=== PATIENT | female | born 1945 | race Caucasian/White ===

== ENCOUNTER 2018-08-30 14:17 | Inpatient (IN) | payer MEDICARE, OTHER ==
[~2018-08-30] VITALS: Ht 160 cm; Wt 102.0 kg
[2018-08-30 14:37] VITALS: BP 92/40
[2018-08-30] MEDS ORDERED: LISINOPRIL20 MG PO (14:48)
[2018-08-30] MEDS ORDERED: CLARITIN10 MG PO (14:49)
[2018-08-30] MEDS ORDERED: GABAPENTIN 100100 MG PO (14:49)
[2018-08-30] MEDS ORDERED: NOVOLIN 70100 UNIT/1 SUBQ (14:51)
[2018-08-30] MEDS ORDERED: IMDUR 60 MG TAB60 M1 PO (14:51)
[2018-08-30] MEDS ORDERED: ONDANSETRON HCL4 M2 PO (14:51)
[2018-08-30] MEDS ORDERED: PENTOXIFYLLINE400 MG PO (14:52)
[2018-08-30] MEDS ORDERED: PROTONIX40 M1 PO (14:52)
[2018-08-30] MEDS ORDERED: LIPITOR40 MG PO (14:52)
[2018-08-30] MEDS ORDERED: CARVEDILOL3.125 MG PO (14:53)
[2018-08-30] MEDS ORDERED: K-DUR 20 MEQ T20 MEQ PO (14:53)
[2018-08-30] MEDS ORDERED: SENNA8.6 MG PO (14:53)
[2018-08-30] MEDS ORDERED: GLUCOPHAGE1000 MG PO (14:54)
[2018-08-30] MEDS ORDERED: ZOLOFT50 MG PO (14:54)
[2018-08-30] MEDS ORDERED: CHILDREN'S ASPI81 M1 PO (14:55)
[2018-08-30] MEDS ORDERED: LASIX 40 MG TAB40 M2 PO (14:55)
[2018-08-30] MEDS ORDERED: BISACODYL SUPP10 MG RECTAL (14:55)
[2018-08-30 15:23] LABS: URINE BILIRUBIN NEGATIVE (Negative); URINE BLOOD 3+ (Negative); URINE CLARITY CLEAR; URINE COLOR YELLOW; URINE GLUCOSE-RANDOM NEGATIVE (Negative); URINE KETONES TRACE (Negative); URINE LEUKOCYTES-REFLEX 1+ (Negative); URINE NITRITE-REFLEX NEGATIVE (Negative); URINE PROTEIN 2+ (Negative); URINE SPECIFIC GRAVITY >= 1.030 (1.005-1.030); URINE UROBILINOGEN 0.2 E.U./dl (0.2-1.0)
[2018-08-30 15:34] LABS: HYALINE CASTS >10 Many /LPF (None Seen); MUCUS None Seen strn/LPF (None Seen); SQUAMOUS 4-10 Moderate /LPF (0-3)
[2018-08-30 15:35] LABS: BACTERIA-REFLEX 1-9 Few /HPF (None Seen); CRYSTALS None Seen /LPF (None Seen); URINE RBC >20 Many /HPF (0-2); URINE WBC-REFLEX 0-5 Rare /HPF (0-5)
[2018-08-30 15:38] LABS: HEMATOCRIT 28.5 % (37.0-47.0); MCHC 31.5 g/dL (28.0-37.0); MCV 95.5 fL (80.0-100.0); MPV 7.7 fl. (7.2-11.1); NUCLEATED RBCS 0 /100WBC; PLATELET COUNT* 257 thou/uL (150-400); RBC 2.98 mil/uL (4.20-5.00); RDW-CV 15.8 % (10.5-14.5); WBC 10.5 thou/uL (4.0-11.0)
[2018-08-30 15:51] LABS: APTT 25.5 Seconds (25.0-31.3); CALCIUM 9.1 mg/dL (8.5-10.1); CREATININE 3.1 mg/dL (0.6-1.3); INR 1.2; POTASSIUM 3.9 mmol/L (3.5-5.1); PROTIME 12.1 Seconds (9.20-11.50)
[2018-08-30 16:08] LABS: ALBUMIN 3.1 g/dL (3.4-5.0); TOTAL BILIRUBIN 0.3 mg/dL (<0.1-1.0); TOTAL PROTEIN 7.3 g/dL (6.4-8.2); TROPONIN-I LEVEL 0.32 ng/mL (<0.06)
[2018-08-30 16:41] LABS: ABSOLUTE EOSINOPHILS 1.5 thou/uL (0.0-0.7); ABSOLUTE LYMPHOCYTES 1.7 thou/uL (0.8-5.3); ABSOLUTE MONOCYTES 0.5 thou/uL (0.0-1.2); ABSOLUTE NEUTROPHILS 6.8 thou/uL (1.6-8.1); PLATELET ESTIMATE ADEQUATE
[2018-08-30 19:54] VITALS: BP 108/52
[2018-08-30 20:54] VITALS: BP 95/45
[2018-08-30 23:55] VITALS: BP 82/44
[2018-08-31] VITALS (73 sets, daily range): BP systolic 82–169; BP diastolic 33–88
--- NOTE | 2018-08-31 03:42 | NUR ---
ASSUMED CARE OF PT AT 2030 FROM THE ER. PT WAS ALERT AND ORIENTED. VSS. VEE. PT WAS IN A FLUTTER. AT ABOUT MIDNIGHT PT WAS NOTED TO BE HYPOTENSIVE. BLOOD PRESSURE WAS 75/[address] HOOD NOTIFIED. PT WAS GIVEN A 500 ML BOLUS. BLOOD PRESSURE CAME UP TO 87/43. BLOOD PRESSURE REMAINED IN THE 80'S SYSTOLIC. PT REPORTED FEELING OK. AT ABOUT 0300. PT WAS RECHECKED AND BLOOD PRESSURE WAS 67/33. FAMILY CALLED. THEY STATED THEIR WISHES WHERE FOR PT TO BE GIVEN MEDS TO ASSIST BLOOD PRESSURE. DR HOOD NOTIFIED AND PT WAS TAKEN TO ICU AT 0335.
--- NOTE | 2018-08-31 05:24 | NUR ---
PATIENT TO ICU ROOM 6 AT 0330 ACCOMPANIED BY RN AND ON A BED. ON 2L OF O2 PER NC. ALERT AND ORIENTED X4. PATIENT GOES BACK AND FORTH FROM SINUS ARRYTHMIA TO AFIB. VITALS STABLE, MAP >60 AT THIS TIME, WILL MONITOR AND START PRESSOR NEEDED. CENTRAL LINE PLACED AT BEDSIDE. FAMILY AT BEDSIDE. PATIENT COMPLAINS OF HEADACHE, DENIES PAIN OTHERWISE.
[2018-08-31 05:31] LABS: ABSOLUTE EOSINOPHILS 1.3 thou/uL (0.0-0.7); ABSOLUTE LYMPHOCYTES 1.1 thou/uL (0.8-5.3); ABSOLUTE MONOCYTES 0.6 thou/uL (0.0-1.2); ABSOLUTE NEUTROPHILS 6.8 thou/uL (1.6-8.1); BASOPHILS 0.4 %; HEMATOCRIT 26.5 % (37.0-47.0); HEMOGLOBIN 8.5 gm/dL (12.0-15.0); LYMPHOCYTES 11.3 %; MCH 30.5 pg (26.0-34.0); MCHC 31.9 g/dL (28.0-37.0); MCV 95.5 fL (80.0-100.0); MPV 8.3 fl. (7.2-11.1); NUCLEATED RBCS 0 /100WBC; PLATELET COUNT* 235 thou/uL (150-400); POLYS 69.3 %; RBC 2.78 mil/uL (4.20-5.00); RDW-CV 15.3 % (10.5-14.5); WBC 9.9 thou/uL (4.0-11.0)
[2018-08-31 06:11] LABS: ALBUMIN 2.8 g/dL (3.4-5.0); CALCIUM 9.1 mg/dL (8.5-10.1); CREATININE 3.3 mg/dL (0.6-1.3); MAGNESIUM 1.4 mg/dL (1.8-2.4); PHOSPHORUS* 3.5 mg/dL (2.5-4.9); POTASSIUM 4.1 mmol/L (3.5-5.1); TOTAL BILIRUBIN 0.4 mg/dL (<0.1-1.0); TOTAL PROTEIN 6.5 g/dL (6.4-8.2); TROPONIN-I LEVEL 0.26 ng/mL (<0.06)
--- NOTE | 2018-08-31 09:12 | NUR ---
0723 ASSUMED CARE OF PATIENT.PLEASE SEE DOCUMENTED ASSESSMENT. PT C/O FATIGUE. WEANING LEVOPHED GTT
[2018-08-31 09:40] LABS: CHOLESTEROL 76 mg/dL (<200); HDL CHOLESTEROL 22 mg/dL (>40); LDL CHOLESTEROL 31 mg/dL (<100); TC:HDL 3.5 Ratio (Not establshd); TRIGLYCERIDE 116 mg/dL (<150); VLDL 23 mg/dL (<40)
[2018-08-31 09:41] LABS: SERUM ASSESSMENT Clear
--- NOTE | 2018-08-31 10:41 | NUR ---
INITIAL ASSESSMENT: Pt evaluated for d/c planning needs. Reviewed chart and spoke with nurse and pt. Pt is alert and oriented. Pt was living at home with her in [place] and moved within the past week to area to live with her daughter. Pt has walker and has been hospitalized several times in the past few weeks. Pt has been 58 years and spouse has macular degeneration. Pt plans on returning home with her daughter on d/c from hospital. Will remain available to assist as needed.
--- NOTE | 2018-08-31 12:41 | 2DMMODE ---
[place] [address] 2 D/M-MODE ECHOCARDIOGRAM Name: GUERA MARKHAM Room: [address] IN [facility]#: [id number] Admission: 08/30/18 Attend Phys: Whitney Goyal MD Discharge: Date of : 41 Date of Service: 08/31/18 1241 Report #: [id number] THIS REPORT FOR: //name// APPROVED REPORT Study performed: 08/31/2018 10:02:24 EXAM: Comprehensive 2D, Doppler, and color-flow Echocardiogram Patient Location: In-Patient Room #: [facility] Status: routine BSA: 2.01 HR: 68 bpm BP: 98/56 mmHg Rhythm: Atrial Fibrillation Other Information Study Quality: Good Indications Congestive Heart Failure 2D Dimensions IVSd: 11.40 (7-11mm) LVOT Diam: 19.75 (18-24mm) LVDd: 47.91 mm PWd: 11.53 (7-11mm) Ascending Ao: 28.51 (22-36mm) LVDs: 39.68 (25-40mm) Aortic Root: 31.81 mm Volumes Left Atrial Volume (Systole) LA ESV Index: 50.80 mL/m2 Aortic Valve AoV Peak Gerald.: 1.44 m/s AO Peak Gr.: 8.32 mmHg LVOT Max P.72 mmHg AO Mean Gr.: 4.25 mmHg LVOT Mean P.31 mmHg LVOT Max V: 0.83 m/s AO V2 VTI: 26.68 cm LVOT Mean V: 0.52 m/s JOANNA (VTI): 1.89 cm2 LVOT V1 VTI: 16.43 cm Mitral Valve E/A Ratio: 2.02 MV Decel. Time: 172.21 ms MV E Max Gerald.: 1.14 m/[place] [address] 2 D/M-MODE ECHOCARDIOGRAM Name: GUERA MARKHAM Room: [address] IN [facility]#: [id number] Admission: 08/30/18 Attend Phys: Whitney Goyal MD Discharge: Date of : 41 Date of Service: 08/31/18 1241 Report #: [id number] MV PHT: 49.94 ms MVA (PHT): 4.41 cm2 TDI E/Lateral E': 8.14 E/Medial E': 19.00 Medial E' Gerald.: 0.06 m/s Lateral E' Gerald.: 0.14 m/s Pulmonary Valve PV Peak Gerald.: 0.78 m/s PV Peak Gr.: 2.43 mmHg Tricuspid Valve RAP Estimate: 15.00 mmHg TR Peak Gr.: 24.57 mmHg RVSP: 39.00 mmHg PA Pressure: 39.00 mmHg Left Ventricle The left ventricle is normal size. Regional wall motion abnormalities are noted. The basal inferior wall is akinetic. The apex is akinetic. The septum is severely hypokinetic. There is normal left ventricular wall thickness. Left ventricular systolic function is moderately decreased. LVEF is 35-40%. Severe diastolic dysfunction is present (restrictive filling). Right Ventricle Right ventricle is dilated. Right ventricular systolic function is moderately reduced. Atria Left atrium is moderately dilated. Right atrium is moderately dilated. Aortic Valve Aortic valve leaflets are mildly thickened. No aortic regurgitation is present. Mild aortic stenosis. Mitral Valve The mitral valve is normal in structure. Mild mitral regurgitation. No evidence of mitral valve stenosis. Tricuspid Valve The tricuspid valve is normal in structure. Severe tricuspid regurgitation. The RVSP is 50-55 mmHg. Pulmonic Valve The pulmonary valve is normal in structure. [place] [address] 2 D/M-MODE ECHOCARDIOGRAM Name: GUERA MARKHAM Room: [address] IN [facility]#: [id number] Admission: 08/30/18 Attend Phys: Whitney Goyal MD Discharge: Date of : 41 Date of Service: 08/31/18 1241 Report #: [id number] regurgitation. Great Vessels The aortic root is normal in size. IVC is dilated and collapses <50% with inspiration. Pericardium There is no pericardial effusion. <Conclusion> Right ventricle is dilated. Right ventricular systolic function is moderately reduced. Left atrium is moderately dilated. Right atrium is moderately dilated. Aortic valve leaflets are mildly thickened. Mild aortic stenosis. Mild mitral regurgitation. Severe tricuspid regurgitation. The RVSP is 50-55 mmHg. Mild pulmonic regurgitation. IVC is dilated and collapses <50% with inspiration. <ELECTRONICALLY SIGNED> By: Harley Rice MD, FACC 08/31/18 1241 1241 124 Harley Rice MD, FACC /INF
--- NOTE | 2018-08-31 13:16 | NUR ---
1245 OFF OF LEVOPHED DRIP. DIET RESUMED. CONVERTED TO SINUS RHYTHM BUT HAS EPISODES OF A FIB.
--- NOTE | 2018-08-31 15:49 | EKG ---
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: : 1945 Requested By: Nessa Griffith Order Number: [id number] MD: Harley Rice Measurements Intervals [place] Rate: 88 P: UT: QRS: 48 QRSD: 117 T: 238 QT: 403 QTc: 488 Interpretive Statements Atrial fibrillation Nonspecific intraventricular conduction delay Borderline repolarization abnormality No previous ECG available for comparison Electronically Signed On 08-31-2018 15:49:34 CDT by Harley Rice [email or web address] <ELECTRONICALLY SIGNED> By: Harley Rice MD, [facility] 08/31/18 1549 1520 152 Harley Rice MD, FACC /EPI
--- NOTE | 2018-08-31 18:06 | NUR ---
PATIENT PROGRESSING TOWARDS GOALS. NOW MORE ALERT. DIET RESUMED. DOES NOT HAVE LOWER TEETH AND DID NOT WANT THEM BECAUSE THEY HURT HER MOUTH. TAKES ONLY SOFT FOODS. CURRENTLY OFF OF PRESSORS. GOES IN AND OUT OF ATRIAL FIB. OLIGURIC. SEEN BY NEPHROLOGY. FAMILY HAS VISITED. REMAINS DNR STATUS
[2018-09-01] VITALS (41 sets, daily range): BP systolic 80–139; BP diastolic 33–93
[2018-09-01 04:38] LABS: ALBUMIN 2.7 g/dL (3.4-5.0); CALCIUM 8.8 mg/dL (8.5-10.1); CREATININE 3.1 mg/dL (0.6-1.3); TOTAL BILIRUBIN 0.4 mg/dL (<0.1-1.0); TOTAL PROTEIN 6.4 g/dL (6.4-8.2)
--- NOTE | 2018-09-01 05:12 | NUR ---
VITALS STABLE, AFEBRILE. LEVOPHED TITRATED OFF, BP SOFT BUT MAINTAINING MAP>60. PATIENT ALERT AND ORIENTED X3, MORE CONVERSATIONAL THAN SHE WAS LAST NIGHT. ABLE TO SLEEP THROUGH MOST OF THE NIGHT. OTHERWISE UNEVENTFUL NIGHT. Q2 TURNS FOR SKIN INTEGIRTY. CALL LIGHT WITHIN REACH.
--- NOTE | 2018-09-01 18:26 | NUR ---
09/01 Days: Levo restarted this evening due to MAP in the 40's. Patient asymptomatic of hypotension. Ate fair at meals, >50%. Total fluid intake to remain below 1500, preferably 1200 if possible per nephro. HIMS, NEPHRO, and CARDS has lengthy discussions with family and disease processes. MIVF discontinued. UOP 250 for shift. Tylenol x1 for neck discomfort
[2018-09-02] VITALS (95 sets, daily range): BP systolic 72–153; BP diastolic 13–70
[2018-09-02 05:07] LABS: ABSOLUTE BASOPHILS 0.1 thou/uL (0.0-0.2); ABSOLUTE EOSINOPHILS 0.9 thou/uL (0.0-0.7); ABSOLUTE LYMPHOCYTES 1.2 thou/uL (0.8-5.3); ABSOLUTE MONOCYTES 0.7 thou/uL (0.0-1.2); ABSOLUTE NEUTROPHILS 4.7 thou/uL (1.6-8.1); BASOPHILS 0.7 %; EOSINOPHILS 12.3 %; HEMATOCRIT 27.7 % (37.0-47.0); HEMOGLOBIN 8.7 gm/dL (12.0-15.0); MCH 29.5 pg (26.0-34.0); MCHC 31.2 g/dL (28.0-37.0); MCV 94.3 fL (80.0-100.0); MONOCYTES 8.8 %; MPV 8.2 fl. (7.2-11.1); NUCLEATED RBCS 0 /100WBC; PLATELET COUNT* 242 thou/uL (150-400); POLYS 62.2 %; RBC 2.94 mil/uL (4.20-5.00); RDW-CV 15.8 % (10.5-14.5); WBC 7.5 thou/uL (4.0-11.0)
[2018-09-02 05:20] LABS: ALBUMIN 2.6 g/dL (3.4-5.0); CALCIUM 8.8 mg/dL (8.5-10.1); CREATININE 2.8 mg/dL (0.6-1.3); PHOSPHORUS* 3.6 mg/dL (2.5-4.9); POTASSIUM 3.9 mmol/L (3.5-5.1)
--- NOTE | 2018-09-02 06:55 | NUR ---
ASSESSMENT CHARTED. ATTEMPTED TO WEAN OFF LEVOPHED THREE TIMES DURING SHIFT. UNSUCCESSFULL ATTEMPTS. PATIENT REMAINS ON 1 MCG/MIN OF LEVO. SPOKE WITH FAMILY TWICE DURING SHIFT AND GAVE UPDATES. PATIENT C/O PAIN IN COCCYX OVER RED/PURPLE AREA. APPLIED BARRIER CREAM AND GAVE PATIENT BED BATH. PATIENT SLEPT DURING MOST OF THE SHIFT. DENIED ANY OTHER PAIN OR DISCOMFORT. STILL ON 1500ML FLUID RESTRICTION. WILL CONTINUE TO MONITOR.
--- NOTE | 2018-09-02 19:24 | NUR ---
PT ALERT AND ORIENTED X4. LEVOPHED OFF AT 0830, RESTARTED AT 1215 FOR MAP<60, CONTD AT 2MCG/MIN. PT ASYMPTOMATIC WITH LOW MAP. TYELONOL GIVEN ONCE FOR NECK PAIN. TOLERATED HER DIET WELL. NO BM. SAT AT THE EDGE OF THE BED FOR 2 MINS WITH THE HELP OF PT. POSTITIONING DONE Q2H.
[2018-09-03] VITALS (86 sets, daily range): BP systolic 83–132; BP diastolic 26–107
[2018-09-03 04:08] LABS: HEMATOCRIT 27.8 % (37.0-47.0); HEMOGLOBIN 8.8 gm/dL (12.0-15.0); MCH 29.7 pg (26.0-34.0); MCHC 31.5 g/dL (28.0-37.0); MCV 94.3 fL (80.0-100.0); MPV 8.4 fl. (7.2-11.1); NUCLEATED RBCS 0 /100WBC; PLATELET COUNT* 237 thou/uL (150-400); RBC 2.95 mil/uL (4.20-5.00); RDW-CV 15.7 % (10.5-14.5); WBC 8.5 thou/uL (4.0-11.0)
[2018-09-03 04:28] LABS: CREATININE 2.6 mg/dL (0.6-1.3); POTASSIUM 4.1 mmol/L (3.5-5.1)
[2018-09-03 05:48] LABS: ABSOLUTE LYMPHOCYTES 1.7 thou/uL (0.8-5.3); ABSOLUTE MONOCYTES 0.9 thou/uL (0.0-1.2); ABSOLUTE NEUTROPHILS 4.9 thou/uL (1.6-8.1)
[2018-09-03 05:49] LABS: ANISOCYTOSIS 1+; HYPOCHROMASIA Occasional; OVALOCYTES 1+; PLATELET ESTIMATE ADEQUATE; POIKILOCYTOSIS 1+
--- NOTE | 2018-09-03 06:46 | NUR ---
PATIENT SLEPT FOR MOST OF THE SHIFT. NO COMPLAINTS OF PAIN OR DISCOMFORT. TITRATED LEVOPHED OFF. PRESSURES STABLE. FAMILY CALLED FOR UPDATES. PATIENT REMAINS BRADYCARDIC. STILL ON 1.5L FLUID RESTRICTION. DRANK ONLY 100 ML ON SHIFT. REMAINS OLIGURIC. WILL CONTINUE TO MONITOR.
--- NOTE | 2018-09-03 11:30 | NUR ---
CONITNUING TO FOLLOW. REMAINS IN ICU. BP STABLE AT THIS TIME. OFF LEVO PT.ALERT AND ORIENTED. STATED SHE IS STILL WEAK BUT MAYBE FEELING ALITTLE BETTER. CM WILL CONTINUE TO FOLLOW.
--- NOTE | 2018-09-03 11:55 | NUR ---
Nutrition: Pt assessed for high BMI. Admitted with ARF. H/o CAD, DM, anemia, CKD. Heart Healthy diet is ordered, appears has poor appetite. Wt is 246#. Labs: BUN 72, cr 2.6, alb 2.6, prealb 16.6, BG 151. No nutrition interventions today. GOAL: >75% of meals consumed, gradual wt loss over time. Mild to low nutrition risk.
--- NOTE | 2018-09-03 13:49 | NUR ---
PT. REPORTED SHE NEEDED MAX A FOR ADLS AT HOME AND SOMETIMES ASSIST FOR FEEDING BUT PT. DEMONSTRATED MOD A FOR BATHING TODAY AND SUP A FOR GROOMING TASKS. PT. APPEARS TO HAVE DECREASED INSIGHT.
--- NOTE | 2018-09-03 15:11 | CON ---
[address] [address] CONSULTATION Name: GUERA MARKHAM Room: [address] IN .R.#: [id number] Admission: 08/30/18 Attend Phys: Whitney Goyal MD Discharge: Date of : 41 Report #: [id number] THIS REPORT FOR: //name// CC: FAM physician/PCP Whitney Goyal DATE OF SERVICE: 08/31/2018 REQUESTING PHYSICIAN: Dr. Goyal. REASON FOR CONSULTATION: Acute kidney injury on top of the chronic kidney disease. HISTORY OF PRESENT ILLNESS: The patient is a 73-year-old female who moved recently here from [place], actually it happened just 2 days ago. She was in hospital there in the regional admission at [facility] was fluid overload. Her creatinine at the baseline. It was 2.0, but at discharge, it was 3.2. After discharge, she came here to the Emergency Room complaining of being very weak, decreased urine output. Her creatinine again was found to be 3.3. She was hypotensive, blood pressure in the 70s and 80s initially admitted to the floor, but then because of hypotension, had to be transferred to Intensive Care Unit. PAST MEDICAL HISTORY: 1. Diabetes mellitus type 2. 2. Coronary artery disease, status post bypass graft surgery. 3. History of ischemic cardiomyopathy. 4. She had relatively preserved ejection fraction is slight decrease around 40-45%, left ventricle, ejection fraction, had mild valvular heart disease. 5. She also has a history of COPD. 6. Diabetes. FAMILY HISTORY: Noncontributory due to her age. MEDICATIONS: Reviewed. Her ALINA inhibitor was stopped due to hypotension and acute kidney injury. Currently, she is getting gentle hydration at 50 mL an hour and also receiving isosorbide, Neurontin, aspirin, insulin and albuterol. She is also on Levophed due to hypotension. REVIEW OF SYSTEMS: Positive for being very weak, having low urine output. Denies active chest pain, denies fever or chills. Rest of the systems negative. PHYSICAL EXAMINATION: GENERAL: She is in intensive care unit, resting comfortably flat. VITAL SIGNS: Blood pressure now 134/69, heart rate 76, respiration rate 19, [place] [address] CONSULTATION Name: GUERA MARKHAM Room: [address]#: [id number] Admission: 08/30/18 Attend Phys: Whitney Goyal MD Discharge: Date of : 41 Report #: [id number] HEENT: Pupils are round. NECK: Supple. LUNGS: Decreased air movement. CARDIOVASCULAR: Irregular rate. ABDOMEN: Soft. LOWER EXTREMITIES: No edema. LABORATORY DATA: Hemoglobin 8.5. Serum sodium 140, potassium 4.1, BUN 67, creatinine 3.3, magnesium 14, calcium 9.5, phosphorus 3.5. Her urinalysis showed 2+ protein, 3+ blood, 1-9 bacteria. ASSESSMENT: 1. Acute kidney injury may be due to volume depletion. She was hypotensive. She probably was over diuresed in [place]. The original admission again at [place] was fluid overload. She also was diagnosed with urinary retention and has Cuevas catheter. 2. Chronic kidney disease stage 3, baseline creatinine around 2. 3. Chronic atrial fibrillation. 4. Diabetes mellitus type 2. 5. Coronary artery disease. 6. Chronic obstructive pulmonary disease. PLAN: I would continue gentle hydration now and hold ALINA inhibitors, no need for diuretics at this point, later on she probably will require diuretics, but now, we just want to make sure her blood pressure is stable. Follow her labs. Await final report on echocardiogram. We did order an echocardiogram to be done here. I discussed this case with Dr. Goyal. <ELECTRONICALLY SIGNED> By: Joshua Davis MD 09/03/18 1511 1044 1804Alexchava Davis MD /nt
--- NOTE | 2018-09-03 19:29 | NUR ---
PT PROGRESSING TOWARDS GOALS, BP WNL THE WHOLE DAY WITHOUT PRESSORS. O2 SATS >92% IN RA. ATE 30-40% OF HER MEALS. SAT IN THE RECLINER COMFORTABLY FOR 6 HRS. NO COMPLAINTS OF PAIN.
[2018-09-04] VITALS (76 sets, daily range): BP systolic 84–159; BP diastolic 30–74
[2018-09-04 05:48] LABS: ALBUMIN 2.7 g/dL (3.4-5.0); CREATININE 2.4 mg/dL (0.6-1.3); POTASSIUM 4.5 mmol/L (3.5-5.1); TOTAL BILIRUBIN 0.3 mg/dL (<0.1-1.0); TOTAL PROTEIN 6.3 g/dL (6.4-8.2)
--- NOTE | 2018-09-04 06:43 | NUR ---
ASSESSMENTS CHARTED. PATIENT REMAINED OFF OF LEVOPHED DURING SHIFT. PROGRESSING TOWARDS GOALS. PATIENT CURRENTLY UP IN CHAIR AND VSS. PATIENT HAD A 7 BEAT RUN OF VTACH EARLY IN SHIFT. DOCUMENTED IN CHART. PLACED PATIENT BACK ON 2L NC TO KEEP O2 SAT FROM DROPPING. PATIENT COMPLAINED OF PAIN IN NECK AND HEAD DURING SHIFT. NO EVIDENCE OF SUFFERING A STROKE AT THIS TIME. ADMINISTERED TYLENOL AND FENTANYL PER ORDERS AND PAIN RESOLVED. PATIENT CONSUMED 620 ML OF FLUID SINCE MIDNIGHT.
--- NOTE | 2018-09-04 17:48 | NUR ---
PT ALERT AND ORIENTED X4. SAT IN A RECLINER FOR 4 HOURS. HAD A HUGE BM, DARK BROWN FORMED. TOLERATING HER DIET. LASIX AT 10 MG/HR PER NEPHROLOGY. BP IN DECREASING TREND WITH MAP 50-55. DR ROJAS NOTIFIED, DOPAMINE STARTED AT 5 MCG/KG/MIN PER ORDERS. MAP >65 WITH DOPAMINE AT 5.
[2018-09-05] VITALS (91 sets, daily range): BP systolic 78–154; BP diastolic 27–77
[2018-09-05 04:15] LABS: ABSOLUTE BASOPHILS 0.1 thou/uL (0.0-0.2); ABSOLUTE EOSINOPHILS 0.9 thou/uL (0.0-0.7); ABSOLUTE LYMPHOCYTES 1.1 thou/uL (0.8-5.3); ABSOLUTE MONOCYTES 0.7 thou/uL (0.0-1.2); BASOPHILS 0.7 %; EOSINOPHILS 8.2 %; HEMATOCRIT 32.1 % (37.0-47.0); HEMOGLOBIN 10.2 gm/dL (12.0-15.0); LYMPHOCYTES 10.4 %; MCH 30.2 pg (26.0-34.0); MCHC 31.9 g/dL (28.0-37.0); MCV 94.7 fL (80.0-100.0); MONOCYTES 6.9 %; MPV 8.6 fl. (7.2-11.1); NUCLEATED RBCS 0 /100WBC; PLATELET COUNT* 272 thou/uL (150-400); POLYS 73.8 %; RBC 3.39 mil/uL (4.20-5.00); RDW-CV 16.2 % (10.5-14.5); WBC 10.8 thou/uL (4.0-11.0)
[2018-09-05 04:34] LABS: CALCIUM 9.8 mg/dL (8.5-10.1); CREATININE 2.2 mg/dL (0.6-1.3); PREALBUMIN 17.7 mg/dL (18.0-35.7); TOTAL BILIRUBIN 0.6 mg/dL (<0.1-1.0); TOTAL PROTEIN 7.1 g/dL (6.4-8.2)
--- NOTE | 2018-09-05 06:32 | NUR ---
ASSESSMENTS CHARTED. PATIENT ALERT AND ORIENTED X3. NEEDS REORIENTING TO TIME REPEATEDLY. PATIENT C/O ABDOMINAL DISCOMFORT AND ACID REFLUX TONIGHT. ADMINISTERED MORNING DOSE OF PROTONIX EARLY WITH MINIMAL RELIEF. ZOFRAN ADMINISTERED TO RELIEVE NAUSEA. PATIENT REMAINED ON DOPAMINE DURING SHIFT. ATTEMPTED TO TITRATE OFF WITH NO SUCCESS. LASIX GTT STILL GOING AT 10/HR. PATIENT VOIDED 2400 VIA CATHETER. SLIGHT IMPROVEMENT IN KIDNEY FUNCTION FROM LAB WORK. WILL CONTINUE TO MONITOR.
--- NOTE | 2018-09-05 17:11 | NUR ---
PT OUT OF BED FOR 4 HOURS, COMPLAINS OF HEARTBURN, ANTACID ADMINISTERED TWICE THIS SHIFT. EATING ONLY ABOUT 20% OF THE MEALS. VSS. LASIX DRIP DECREASED TO 5MG/HR. DOPAMINE CONTD AT 5 MCG/KG/MIN. COMPLETE BED BATH AND ORAL CARE GIVEN, LINENS CHANGED. URINE OUTPUT 1800 MLS. PROGRESSING TOWARDS GOALS.
--- NOTE | 2018-09-05 22:23 | NUR ---
Patient vomited large amount of stomach acid and bile. Administered zofran per order. Occurred after med pass. Holding anything PO until nausea is resolved. will continue to monitor.
[2018-09-06] VITALS (62 sets, daily range): BP systolic 81–141; BP diastolic 32–96
[2018-09-06 04:03] LABS: ABSOLUTE EOSINOPHILS 0.6 thou/uL (0.0-0.7); ABSOLUTE LYMPHOCYTES 1.6 thou/uL (0.8-5.3); ABSOLUTE MONOCYTES 0.8 thou/uL (0.0-1.2); ABSOLUTE NEUTROPHILS 8.7 thou/uL (1.6-8.1); BASOPHILS 0.3 %; EOSINOPHILS 4.9 %; HEMATOCRIT 31.9 % (37.0-47.0); HEMOGLOBIN 10.2 gm/dL (12.0-15.0); LYMPHOCYTES 13.6 %; MCH 30.5 pg (26.0-34.0); MCV 95.2 fL (80.0-100.0); MONOCYTES 6.6 %; MPV 8.4 fl. (7.2-11.1); NUCLEATED RBCS 0 /100WBC; PLATELET COUNT* 254 thou/uL (150-400); POLYS 74.6 %; RBC 3.35 mil/uL (4.20-5.00); RDW-CV 16.4 % (10.5-14.5); WBC 11.6 thou/uL (4.0-11.0)
[2018-09-06 04:04] LABS: CALCIUM 9.5 mg/dL (8.5-10.1); POTASSIUM 3.9 mmol/L (3.5-5.1)
--- NOTE | 2018-09-06 06:39 | NUR ---
ASSESSMENTS CHARTED. PATIENT EXPERIENCED EMESIS AT 2130. SEE PREVIOUS NOTE FOR DETAILS. CALLED NEPHROLOGY TO STOP LASIX GTT. AFTER 0100, PATIENT HAD NO URINE OUTPUT. ORDERS RECEIVED FROM DR. COELLO. LASIX GTT OFF. DOPAMINE GTT AT 5. PATIENT SLEPT FOR MAJORITY OF SHIFT. HELD ALL PO MEDICATIONS AND INTAKE AFTER EMESIS EPISODE. LUNG SOUNDS CHANGED FROM BASELINE AFTER EMESIS. ORDER OBTAINED FOR CXR TO CHECK FOR ASPIRATION. WILL CONTINUE TO MONITOR.
--- NOTE | 2018-09-06 12:20 | NUR ---
THERAPY WORKING WITH PT. CM REVIEWED CHART AND SPOKE WITH NURSING. PT.HAD A DIFFICULT NIGHT. SHE HAD N/V. FEELING SOME BETTER THIS AM. STILL ICU STATUS.
[2018-09-07] VITALS (57 sets, daily range): BP systolic 75–128; BP diastolic 30–66
[2018-09-07 04:55] LABS: HEMATOCRIT 30.1 % (37.0-47.0); HEMOGLOBIN 9.6 gm/dL (12.0-15.0); MCH 30.3 pg (26.0-34.0); MCHC 31.8 g/dL (28.0-37.0); MCV 95.1 fL (80.0-100.0); MPV 8.6 fl. (7.2-11.1); NUCLEATED RBCS 0 /100WBC; PLATELET COUNT* 233 thou/uL (150-400); RBC 3.16 mil/uL (4.20-5.00); RDW-CV 16.4 % (10.5-14.5); WBC 11.1 thou/uL (4.0-11.0)
[2018-09-07 05:13] LABS: ALBUMIN 2.6 g/dL (3.4-5.0); CREATININE 1.8 mg/dL (0.6-1.3); POTASSIUM 3.9 mmol/L (3.5-5.1); TOTAL BILIRUBIN 0.5 mg/dL (<0.1-1.0); TOTAL PROTEIN 6.4 g/dL (6.4-8.2)
[2018-09-07 06:08] LABS: ABSOLUTE EOSINOPHILS 2.1 thou/uL (0.0-0.7); ABSOLUTE LYMPHOCYTES 1.4 thou/uL (0.8-5.3); ABSOLUTE MONOCYTES 0.1 thou/uL (0.0-1.2); ABSOLUTE NEUTROPHILS 7.4 thou/uL (1.6-8.1)
[2018-09-07 06:10] LABS: ANISOCYTOSIS 1+; PLATELET ESTIMATE ADEQUATE
--- NOTE | 2018-09-07 06:19 | NUR ---
Pt reports she rested well overnight. C/O burning sensation to bottom toward beginning of shift; relieved with repositioning and jerald care per pt request. Dopamine weaned from 3.5 to 3 mcg/kg/min; MAP ranging from lower-60s to mid-80s overnight. O2 weaned from 3 to 2 liter/min, which is what she uses at home. 400 ml out per devi. Crackles noted to left base this am. Will continue to monitor.
--- NOTE | 2018-09-07 11:19 | NUR ---
PATIENT UP TO COMMODE FOR 7 MINUTES TO ATTEMPT TO HAVE A BM. PASSING GAS BUT NO BOWEL MOVEMENT, MIRALAX ORDERED TO GIVE. WORKED WITH PHYSICAL THERAPY THIS AM AND TOLERATED WELL.
--- NOTE | 2018-09-07 18:26 | NUR ---
PATIENT PROGRESSING WELL TOWARDS GOALS. ABLE TO WEAN OFF DOPAMINE THIS SHIFT AT 1030 AND TOLERATING WELL AT THIS TIME. NO PAIN, NAUSEA, OR SHORTNESS OF AIR. FAMILY HAS BEEN HERE ON AND OFF MOST OF THE DAY. UP TO CHAIR MULTIPLE TIMES THIS SHIFT AND ALSO USED COMMODE AND HAD LARGE BOWEL MOVEMENT. BATH COMPLETED AND HAIR WASHED. PATIENT GETTTING STRONGER EACH TIME SHE GETS UP TO BED TO CHAIR AND VICE VERSA. BED IN LOWEST POSITION, CALL LIGHT IN REACH, PUZZLE ASSEMBLER IN PLACE.
[2018-09-08] VITALS (35 sets, daily range): BP systolic 75–134; BP diastolic 27–62
[2018-09-08 04:44] LABS: ALBUMIN 2.5 g/dL (3.4-5.0); CALCIUM 8.8 mg/dL (8.5-10.1); CREATININE 1.8 mg/dL (0.6-1.3); PHOSPHORUS* 3.4 mg/dL (2.5-4.9)
--- NOTE | 2018-09-08 06:15 | NUR ---
Pt reports she rested well overnight. BP 80s-100s/upper-30s to 40s; MAP low to mid-60s, though dips into 50s at times when pt appears to be sound asleep. When awakened and BP rechecked, MAP improves to 60s. Urine output lower this shift at 175 mls. Pt c/o pain to R side of neck at beginning of shift, received Tylenol per pt request. Reports afterwards that pain to neck "nearly gone." Remains off dopamine gtt; however, BP remains soft. Pt was up in chair at beginning of shift; transferred to bed with walker and minimal assist. Will continue to monitor.
--- NOTE | 2018-09-08 11:45 | NUR ---
SPOKE WITH PT.,WHO WAS UP IN CHAIR. SHE SAID SHE IS FEELING SOME BETTER. PER NURSING ,PT.TO REMAIN ICU STATUS TODAY. OFF DOPAMINE.
--- NOTE | 2018-09-08 15:32 | NUR ---
PATIENT AOX4. UP IN CHAIR. DENIES NEEDS. PROGRESSING TOWARDS GOALS. REPORT GIVEN TO DANELLE GRIER AT 1300.
[2018-09-09] VITALS (24 sets, daily range): BP systolic 105–132; BP diastolic 42–58
--- NOTE | 2018-09-09 02:41 | NUR ---
REPORT RECIEVED FROM OFF GOING SHIFT AND CARE ASSUMMED. PT SITTING IN CHAIR AT BEDSIDE AND VOICED NO COMPLAINTS. MONITORS INTACT. LEE INTACT AND PATENT DRAINING YELLOW URINE TO BEDSIDE BAG. PT STATED SHE WAS FEELINGSOME BETTER TODAY EXCEPT FOR BEING CONSTIPATED. STOOLSOFTNER GIVEN WITH PM MEDS. O2 2L BNC INTACT. PT ASSISTED BACK TO BED WITHOUT DIFFICULTY.
[2018-09-09 03:41] LABS: CALCIUM 8.7 mg/dL (8.5-10.1); CREATININE 1.7 mg/dL (0.6-1.3); POTASSIUM 4.3 mmol/L (3.5-5.1)
--- NOTE | 2018-09-09 11:00 | NUR ---
SPOKE WITH PT'S DAUGHTER,ABDIAZIZ,S-I-L, AND PT. ABOUT DISCHARGE PLANNING. DAUGHTER SAID PT'S CHETAN ECHOLS,IS AN RN THAT WORKS AT [facility]. THEY WOULD LIKE PT.TO GO THERE FOR SKILLED STAY. WILL MAKE REFERRAL WHEN PT.CLOSER TO DISCHARGE.
--- NOTE | 2018-09-09 12:42 | NUR ---
RE: HEART FAILURE MEDIATION EDUCATION I provided a heart failure medication handout to the patient. I discussed torsemide with her and answered all of her questions. Several of her medication have been held due to low blood pressure. Pharmacy is available for any future questions. Thank you.
--- NOTE | 2018-09-09 16:23 | NUR ---
PT TRANSFERED TO ROOM 205. REPORT GIVEN TO DANELLE ADAM. DANELLE STROUD HERE TO TRANSPORT. ALL BELONGINGS SENT WITH PT AND HER FAMILY. PT HAD CONCERNS TODAY R/T CONSTIPATION. ORDERED MEDICATIONS GIVEN INCLUDING SUPPOSITORY. PT HAD GOOD RESULTS X2. UP WITH GAIT BELT, WALKER, AND MIN ASSIST. O2 2L NC. LEE TO DD. DENIES PAIN. PROGRESSING TOWARDS GOALS.
--- NOTE | 2018-09-09 17:27 | NUR ---
RECEIVED REPORT FORM MARVEL IN ICU AND ASSUMED CARE OF PT @ 1630.VSS,TRACING AFIB ON THE MONITOR.STRIP PRINTED.THIS NURSE REVIEWED PREVIOUS NURSE CHARTING AND AGREES WITH ASSESSMENT.PT REMAINS ON 2L O2 NC.NO C/O PAIN.RIGHT IJ TRIPLE LUMEN PATENT AND SALINE LOCKED.HOURLY ROUNDING COMPLETED FOR PT SAFETY.CALL LIGHT AND FALL PRECAUTIONS IN PLACE.WILL CONTINUE TO MONITOR FOR DURATION OF SHIFT.
[2018-09-10 00:16] VITALS: BP 146/56
--- NOTE | 2018-09-10 01:30 | NUR ---
ASSUMED CARE OF PT AT 1900. PT IS ALERT AND ORIENTED. VSS. PERRLA. NO COMPLAINTS OF PAIN. PT IS IN A FIB ON THE TELEMETRY. PT IS RESTING COMFORTABLY IN BED. RESPIRATIONS ARE EVEN AND NONLABORED. WILL CONTINUE TO MONITOR PT.
[2018-09-10 04:10] VITALS: BP 103/55
[2018-09-10 04:50] LABS: CALCIUM 8.8 mg/dL (8.5-10.1); CREATININE 1.7 mg/dL (0.6-1.3); POTASSIUM 4.6 mmol/L (3.5-5.1)
[2018-09-10 07:30] VITALS: BP 109/71; BP 124/46
[2018-09-10 12:30] VITALS: BP 110/45
--- NOTE | 2018-09-10 13:46 | NUR ---
Following for d/c planning needs. Pt and family plan on pt going to [facility] on d/c from hospital. Referral sent to [facility]. Received message back from facility that they are able to accept pt on d/c from hospital and have bed availability over the weekend if medically ready for d/c.
[2018-09-10 16:58] VITALS: BP 104/41
[2018-09-10 23:38] VITALS: BP 112/62
[2018-09-11 03:49] VITALS: BP 111/49
--- NOTE | 2018-09-11 05:00 | NUR ---
ASSUMED CARE OF PT AT 1900. PT IS ALERT AND ORIENTED. VSS. PERRLA. NO COMPLAINTS OF PAIN. PT BLADDER SCAN SHOWED GREATER THAN 400. PT WAS STRAIGHT cath about 2300. ONLY 150 ML OBTAINED. PT IS IN SINUS RYTHM ON THE TELEMETRY. PT IS RESTING COMFORTABLY IN BED. RESPIRATIONS ARE EVEN AND NONLABORED. WILL CONTINUE TO MONITOR PT.
[2018-09-11 07:30] VITALS: BP 126/57
[2018-09-11 13:35] VITALS: BP 128/47
[2018-09-11 17:15] VITALS: BP 127/84
[2018-09-12] VITALS: BP 111/51
[2018-09-12 04:00] VITALS: BP 147/57
--- NOTE | 2018-09-12 04:49 | NUR ---
PT BLADDER SCAN SHOWED 740 ML. PT STRAIGHT CATH. 550 ML OBTAINED.
[2018-09-12 07:30] VITALS: BP 143/56
[2018-09-12 12:15] VITALS: BP 126/62
[2018-09-12 16:16] VITALS: BP 100/48
--- NOTE | 2018-09-12 17:32 | NUR ---
PATIENT PROGRESSING TOWARDS GOALS. UP IN THE CHAIR THIS AFTERNOON. TOLERATING HER DIET WELL WITHOUT NAUSEA/VOMITING. UROLOGY CONSULT CALLED AND DISCUSSED PATIENT WITH DR RAMOS. ORDERS RECEIVED TO PLACE LEE CATHETER AND FOR PATIENT TO DC TO SNF WITH LEE CATHETER AND DO VOIDING TRIAL WHEN PATIENT STRONGER. UPDATED THE PATIENT AND HER FAMILY ON PLAN OF CARE. CALL LIGHT WITHIN REACH. HOURLY ROUNDING CHARTED. WILL CONTINUE PLAN OF CARE.
[2018-09-12 19:50] VITALS: BP 127/57
[2018-09-13] VITALS: BP 110/53
[2018-09-13 04:00] VITALS: BP 138/66
--- NOTE | 2018-09-13 06:41 | NUR ---
RECEIVED REPORT AND ASSUMED CARE AT 1900. VSS. CARDIAC MONITORING IN PLACE. PT DENIES COMPLAINTS OF PAIN. ASSESSMENT COMPLETED CHARTED. PT UP WITH ASSIST WITH WALKER. ON RA. BED LOCKED IN LOWEST POSITION, CALL LIGHT WITHIN REACH, BED ALARM ON. HOURLY ROUNDING COMPLETED AND ALL NEEDS MET
--- NOTE | 2018-09-13 07:05 | NUR ---
CHANGE OF SHIFT BEDSIDE REPORT GIVEN PATIENT SEEN AT BEDSIDE, IN RECLINER ASLEEP ASSUMED PATIENT CARE
[2018-09-13 08:00] VITALS: BP 129/61
[2018-09-13 10:39] VITALS: BP 152/56
--- NOTE | 2018-09-13 15:54 | NUR ---
Nutrition: follow up; pt reported fair appetite at best, can't eat much at once. Does like the chocolate Enusre, white board in room noted 1500 ml fluid restiction. Would like to try Magic Cup. Wt up from admit. BUN/Cr 38/2.0, albumin 2.7. Insulin, torsemide and other meds reviewed. Charting yesterday noted wound on coccyx, nsg today reported as redness. Continues at low-mild risk.
[2018-09-13 20:00] VITALS: BP 107/56
--- NOTE | 2018-09-13 20:00 | NUR ---
RECEIVED REPORT AND ASSUMED CARE OF PT, ASSESSMENT COMPLETED. PT PLEASANT AND TALKATIVE. O2 ON AT 2L/NC, PT C/O FEELING SOA, O2 SAT 99%. PT REMINDED OF FLUID RESTRICTION. TELEMETRY ON SHOWING A-FIB. WILL CONT TO MONITOR AND ASSIST NEEDED.
[2018-09-14] VITALS: BP 128/41
[2018-09-14 04:00] VITALS: BP 136/67
[2018-09-14 05:14] LABS: ABSOLUTE BASOPHILS 0.1 thou/uL (0.0-0.2); ABSOLUTE EOSINOPHILS 0.6 thou/uL (0.0-0.7); ABSOLUTE LYMPHOCYTES 1.4 thou/uL (0.8-5.3); ABSOLUTE MONOCYTES 0.4 thou/uL (0.0-1.2); ABSOLUTE NEUTROPHILS 3.2 thou/uL (1.6-8.1); BASOPHILS 1.1 %; EOSINOPHILS 9.8 %; HEMATOCRIT 26.7 % (37.0-47.0); HEMOGLOBIN 8.3 gm/dL (12.0-15.0); LYMPHOCYTES 25.1 %; MCH 29.6 pg (26.0-34.0); MCHC 31.2 g/dL (28.0-37.0); MCV 94.6 fL (80.0-100.0); MONOCYTES 7.5 %; MPV 8.8 fl. (7.2-11.1); NUCLEATED RBCS 0 /100WBC; PLATELET COUNT* 263 thou/uL (150-400); POLYS 56.5 %; RBC 2.82 mil/uL (4.20-5.00); RDW-CV 17.3 % (10.5-14.5); WBC 5.6 thou/uL (4.0-11.0)
[2018-09-14 05:32] LABS: CREATININE 1.9 mg/dL (0.6-1.3); MAGNESIUM 1.8 mg/dL (1.8-2.4); POTASSIUM 4.3 mmol/L (3.5-5.1)
--- NOTE | 2018-09-14 06:24 | NUR ---
AWAKE OCC. ASSISTED TO CHAIR FOR A SHORT WHILE THEN RETURNED TO BED. TELEMETRY CONT TO SHOW A-FIB. NO CHANGE IN ASSESSMENT. HS GOALS OF REST AND SAFETY ACHIEVED. HOURLY ROUNDING OBSERVED.
[2018-09-14 08:00] VITALS: BP 125/54
--- NOTE | 2018-09-14 10:42 | NUR ---
ASSUMED CARE OF PT AT 0730. PT RESTING IN BED WAITING FOR BREAKFAST. PT A&0X4, DENIES ANY PAIN OR SHORTNESS OF BREATH AT THIS TIME. PT TRACING AFIB ON THE CNC FIELD SERVICE ENGINEER. RATE CONTROLLED. PT ON 2L NC SAT UPPER 90'S. LEE TO DEPENDENT DRAINAGE. PT UP WITH 1 ASSIST AND WALKER TO BATHROOM. PT GOAL FOR TODAY IS FOLLOW FLUID RESTRICTION OF 1,500 ML/ DAY, MONITOR BLOOD SUGARS, UP TO CHAIR FOR MEALS AND PT AND OT TX. AM ASSESSMENT CHARTED. MEDICATIONS PER APR. PT REFUSED AM INSULIN STATING SHE WAS SCARED TO DROP AND WOULD RATHER BE HIGH THAN LOW. EDUCATION GIVEN. PT REPOSITIONED EVERY 2 HOURS FOR COMFORT. HOURLY ROUNDING OBSERVED. BED IN LOW POSITION. BED ALARM IN PLACE. FALL PRECAUTIONS IN PLACE. CALL LIGHT WITHIN REACH. WILL CONTINUE PLAN OF CARE.
[2018-09-14] MEDS ORDERED: DULCOLAX5 MG RECTAL (11:15)
[2018-09-14] MEDS ORDERED: IPRAT-ALBUT 0.5-3 ML INH (11:32)
[2018-09-14] MEDS ORDERED: METOPROLOL SUCC25 M1 PO (11:33)
[2018-09-14] MEDS ORDERED: ELIQUIS5 MG PO (11:33)
[2018-09-14] MEDS ORDERED: FLOMAX0.4 MG PO (11:33)
[2018-09-14] MEDS ORDERED: DEMADEX20 MG PO (11:34)
[2018-09-14] MEDS ORDERED: MIRALAX17 GM PO (11:34)
[2018-09-14] MEDS ORDERED: DOK PLUS TABLE1 EACH PO (11:34)
[2018-09-14] MEDS ORDERED: MELATONIN1 MG PO (11:35)
--- NOTE | 2018-09-14 12:24 | NUR ---
Pt discharging to [facility] today, facility to sweet pickled fruit maker at 3pm. Updated Pt's in room. Faxed dc orders. Chart copied. Nurse report number is [id number].
[2018-09-14 14:04] VITALS: BP 118/47
--- NOTE | 2018-09-14 15:46 | NUR ---
DISCHARGE ORDERS RECEIVED. DISCHARGE INSTRUCTIONS, CARE NOTES AND FOLLOW UP APPTS COPIED AND GIVEN TO TRANSPORTER. CENTRAL LINE REMOVED WITH NO DIFFICULTIES. PRESSURE DRESSING APPLIED. LUMBER TAILER REMOVED. PT DISCHARGED WITH LEE IN PLACE PER UROLOGY AND TO FOLLOW UP IN 4 WEEKS WITH UROLOGY.PT DISCHARGED WITH ALL BELONGINGS AND PAPERWORK VIA WHEELCHAIR VAN SERVICE. REPORT CALLED TO LISETH AT [facility].
== END 2018-09-14 15:50 | DRG 280 ==
LOC: M.ERS 14:17 → M.TBA-ER 16:38 → M.ICU 16:38 → M.2W 19:42 → M.ICU 08-31 03:24 → M.2W 09-09 16:21
PROVIDERS: Internal Medicine; Internal Medicine Nephrology; Nurse Practitioner Family; Registered Nurse; ADMIT Family Medicine
DX: I21.A1 Myocardial infarction type 2 (principal); N17.0 Acute kidney failure with tubular necrosis; R57.0 Cardiogenic shock; I50.43 Acute on chronic combined systolic (congestive) and diastolic (congestive) heart failure; J96.11 Chronic respiratory failure with hypoxia; I48.92 Unspecified atrial flutter; I13.0 Hypertensive heart and chronic kidney disease with heart failure and stage 1 through stage 4 chronic kidney disease, or unspecified chronic kidney disease; N18.4 Chronic kidney disease, stage 4 (severe); I11.0 Hypertensive heart disease with heart failure; I95.9 Hypotension, unspecified; I25.5 Ischemic cardiomyopathy; F17.210 Nicotine dependence, cigarettes, uncomplicated; E10.22 Type 1 diabetes mellitus with diabetic chronic kidney disease; I07.1 Rheumatic tricuspid insufficiency; I48.0 Paroxysmal atrial fibrillation; I27.20 Pulmonary hypertension, unspecified; D50.9 Iron deficiency anemia, unspecified; K59.09 Other constipation; D63.1 Anemia in chronic kidney disease; J44.9 Chronic obstructive pulmonary disease, unspecified; E78.5 Hyperlipidemia, unspecified; Z95.818 Presence of other cardiac implants and grafts; Z95.1 Presence of aortocoronary bypass graft; Z79.82 Long term (current) use of aspirin; Z79.84 Long term (current) use of oral hypoglycemic drugs; Z79.4 Long term (current) use of insulin; Z79.899 Other long term (current) drug therapy; Z88.8 Allergy status to other drugs, medicaments and biological substances; R33.9 Retention of urine, unspecified

== ENCOUNTER 2018-10-19 18:34 | Inpatient (IN) | payer MEDICARE, OTHER ==
[~2018-10-19] VITALS: Ht 167.6 cm; Wt 107.0 kg
[~2018-10-19 18:34] MED LIST: BISACODYL SUPP10 MG RECTAL; CARVEDILOL3.125 MG PO; CHILDREN'S ASPI81 M1 PO; CLARITIN10 MG PO; DEMADEX20 MG PO; DOK PLUS TABLE1 EACH PO; DULCOLAX5 MG RECTAL; ELIQUIS5 MG PO; FLOMAX0.4 MG PO; GABAPENTIN 100100 MG PO; GLUCOPHAGE1000 MG PO; IMDUR 60 MG TAB60 M1 PO; IPRAT-ALBUT 0.5-3 ML INH; K-DUR 20 MEQ T20 MEQ PO; LASIX 40 MG TAB40 M2 PO; LIPITOR40 MG PO; LISINOPRIL20 MG PO; MELATONIN1 MG PO; METOPROLOL SUCC25 M1 PO; MIRALAX17 GM PO; NOVOLIN 70100 UNIT/1 SUBQ; ONDANSETRON HCL4 M2 PO; PENTOXIFYLLINE400 MG PO; PROTONIX40 M1 PO; SENNA8.6 MG PO; ZOLOFT50 MG PO
[2018-10-19 18:42] VITALS: BP 118/55
[2018-10-19 19:05] LABS: HEMATOCRIT 30.4 % (37.0-47.0); HEMOGLOBIN 9.4 gm/dL (12.0-15.0); MCH 27.7 pg (26.0-34.0); MCHC 30.8 g/dL (28.0-37.0); MPV 8.5 fl. (7.2-11.1); NUCLEATED RBCS 0 /100WBC; PLATELET COUNT* 278 thou/uL (150-400); RBC 3.37 mil/uL (4.20-5.00); RDW-CV 18.4 % (10.5-14.5); WBC 7.8 thou/uL (4.0-11.0)
[2018-10-19 19:15] LABS: ANION GAP 10 mmol/L (7-16); BUN 45 mg/dL (7-18); CALCIUM 8.6 mg/dL (8.5-10.1); CHLORIDE 99 mmol/L (98-107); CO2 25 mmol/L (21-32); GLUCOSE 145 mg/dL (70-99); POTASSIUM 4.4 mmol/L (3.5-5.1); SODIUM 134 mmol/L (136-145)
[2018-10-19 19:16] LABS: APTT 30.4 Seconds (25.0-31.3); INR 1.3; PROTIME 13.4 Seconds (9.20-11.50)
[2018-10-19 19:28] LABS: ALBUMIN 2.9 g/dL (3.4-5.0); ALKALINE PHOSPHATASE 91 U/L (46-116); CK-MB MASS 0.6 ng/mL (<0.5-3.6); LIPASE 55 U/L (73-393); MAGNESIUM 2.2 mg/dL (1.8-2.4); NT-PRO BRAIN NAT PEPTIDE 12643 pg/mL (<300); SGOT 24 U/L (15-37); SGPT 17 U/L (30-65); TOTAL BILIRUBIN 0.6 mg/dL (<0.1-1.0); TROPONIN-I LEVEL <0.06 ng/mL (<0.06)
[2018-10-19 19:32] LABS: ABSOLUTE EOSINOPHILS 0.9 thou/uL (0.0-0.7); ABSOLUTE LYMPHOCYTES 2.3 thou/uL (0.8-5.3); ABSOLUTE MONOCYTES 0.5 thou/uL (0.0-1.2); ABSOLUTE NEUTROPHILS 4.1 thou/uL (1.6-8.1); PLATELET ESTIMATE ADEQUATE
[2018-10-19 20:51] VITALS: BP 107/48
[2018-10-19 20:51] LABS: BE -1.2 mmol/L (-2 to +3); PCO2 34.9 mmHg (35.0-45.0); PO2 69.9 mmHg (75.0-100.0); pH 7.431 (7.340-7.450)
[2018-10-19] MEDS ORDERED: POTASSIUM20 PO (21:19)
[2018-10-19] MEDS ORDERED: NOVOLIN 70100 UNIT/5 SUBQ (21:21)
[2018-10-19 21:35] VITALS: BP 104/48
[2018-10-20] VITALS (9 sets, daily range): BP systolic 96–121; BP diastolic 43–70
--- NOTE | 2018-10-20 00:53 | NUR ---
ASSUMED CARE OF PT AT 2100 FROM THE ER. PT IS ALERT AND ORIENTED. VSS. PERRLA. NO COMPLAINTS OF PAIN. PT HAS +3 EDEMA IN HER LOWER EXTREMITIES. PT ALSO HAS A WOUND ON HER COCCYX. PICTURE TAKEN AND PUT IN THE CHART. PT IS IN SINUS RYTHM ON THE TELEMETRY. PT IS RESTING COMFORTABLY IN BED. RESPIRATIONS ARE EVEN AND NONLABORED. WILL CONTINUE TO MONITOR PT.
[2018-10-20 09:53] LABS: CALCIUM 8.3 mg/dL (8.5-10.1); CREATININE 2.8 mg/dL (0.6-1.3); MAGNESIUM 2.1 mg/dL (1.8-2.4); PHOSPHORUS* 4.2 mg/dL (2.5-4.9); POTASSIUM 4.3 mmol/L (3.5-5.1)
--- NOTE | 2018-10-20 11:00 | NUR ---
PT A/O X'S 4 . NO C/O PAIN. PT 97% ON ROOM AIR. TITRATED TO ROOM AIR AND SATTING >92%. WHEN PT BEGINS TO SLEEP PT 89%. DISCUSSED WITH PATIENT WEARING O2 WHEN SLEEPING. PATIENT AND REPORT PT USED TO TAKE 39 UNITS OF INSULIN IN THE MORNING AND THAT UNITS WERE CHANGED DUE TO HYPOGLYCEMIA. BLOOD GLUCOSE 158. PT SCHEDULED TO HAVE 45 UNITS OF INSULIN. PT REPORTS SHE IS UNCOMFORTABLE WITH THAT AMOUNT. PT REPORTS SHE WOULD BE MORE COMFORTABLE WITH 39 UNITS. 39 UNITS ADMININSTERED. PT C/O OF CONSTIPATION. PT GIVEN SCHEDULED MIRALAX AND PRN BISACODYL.
--- NOTE | 2018-10-20 11:06 | EKG ---
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: [place] : 1945 Requested By: Surendra Giang Order Number: [id number] MD: Barrett Warner Measurements Intervals [place] Rate: 65 P: [place]: QRS: 85 QRSD: 99 T: -88 QT: 627 QTc: 653 Interpretive Statements Atrial fibrillation Borderline right axis deviation Low voltage, precordial leads Borderline T abnormalities, diffuse leads Prolonged QT interval Compared to ECG 08/30/2018 15:20:05 Low QRS voltage now present Prolonged QT interval now present Electronically Signed On 10-20-2018 11:06:09 CDT by Barrett Warner [email or web address] <ELECTRONICALLY SIGNED> By: Barrett Warner MD, [facility] 10/20/18 1106 22 22 Barrett Warner MD, [facility] /EPI
--- NOTE | 2018-10-20 12:52 | NUR ---
WOUND CARE NOTE: CONSULT RECEIVED FOR LEG WRAPS. PATIENT PRESENTS WITH 1+ EDEMA TO LOWER EXTREMITIES, BUT APPEARS TO HAVE SIGNIFICANT EDEMA TO TRUNK AND THIGHS. RIGHT INSTEP: 22.5 RIGHT ANKLE: 23.5 RIGHT CALF: 37.5 LEFT INSTEP: 22.5 LEFT ANKLE: 24.5 LEFT CALF: 38.5 BUN AND CREATANINE ARE ELEVATED. PATIENT WITH HISTORY OF CHF, CKD AND ADMITTED WITH RUMA. SPOKE WITH CARDIOLOGY, WILL APPLY COMPRESSION TO ONE LEG AT THIS TIME TO SEE HOW PATIENT TOLERATES THIS. EDUCATED PATIENT ON COMPRESSION THERAPY. PATIENT ALSO HAS A STAGE 2 TO THE RIGHT SIDE OF HER SACRUM. NUMEROUS PINK, FRIABLE EPITHELIUM TO ENTIRETY OF SACRAL AREA. PATIENT ADMITS TO SITTING MOST OF THE TIME. APPLIED BARRIER OINTMENT TO AREA. EDUCATED PATIENT ON IMPORTANCE OF KEEPING OFF AREA TO PROMOTE HEALING. RECOMMEND TURN Q2 HOURS, KEEP OFF WOUND KEEP LEGS ELEVATED AND HEELS OFF BED BARRIER OINTMENT BID AND PRN INCONTINENCE NO BRIEFS IN BED LIMIT LAYERS OF LINEN UNDER PATIENT LIMIT HOB <30 DEGREES IF PATIENT CAN TOLERATE
--- NOTE | 2018-10-20 16:56 | NUR ---
SW met with pt to complete initial assessment, introduce self, and SW role. Pt alert but seemingly tired and would talk but pt answers were difficult to understand ie pt was not clear on whether or not she knew if she came from [facility] straight to hospital or if she'd been home first. Pt lives with pt dtr but has been at [facility] SNF for a while. Pt has RW. Pt uncertain of dc plan at this time. SW to continue to follow to assist with safe dc planning.
--- NOTE | 2018-10-20 18:18 | NUR ---
ADVANCE DIRECTIVE FORM EXPLAINED TO AND GIVEN TO PATIENT AND PER REQUEST OF FULL DECATOR OPERATOR. PT & REPORTED THEY WOULD TALK WITH DAUGTHER ABOUT LIVING WILL. THIS RN WITNESSED 2 BMS THIS SHIFT. PER PT SHE HAS HAD 4-5 BMS THIS SHIFT.
--- NOTE | 2018-10-21 01:47 | NUR ---
ASSUMED CARE OF PT AT 1900. PT IS ALERT AND ORIENTED. VSS. PERRLA. PT IS UP WITH 2 ASSIST. PT IS ON 2 LITERS OF O2. PT HAS +3 EDEMA IN LOWER EXTREMITIES. PT IS IN SINUS RYTHM ON THE TELEMETRY. PT IS RESTING COMFORTABLY IN BED. RESPIRATIONS ARE EVEN AND NONLABORED. WILL CONTINUE TO MONITOR PT.
[2018-10-21 04:00] VITALS: BP 111/44
[2018-10-21 04:45] LABS: ALBUMIN 2.8 g/dL (3.4-5.0); CALCIUM 8.5 mg/dL (8.5-10.1); POTASSIUM 4.6 mmol/L (3.5-5.1); TOTAL BILIRUBIN 0.6 mg/dL (<0.1-1.0); TOTAL PROTEIN 6.7 g/dL (6.4-8.2)
--- NOTE | 2018-10-21 07:10 | NUR ---
CHANGE OF SHIFT, BEDSIDE REPORT GIVEN PATIENT SEEN AT BEDSIDE, IN RECLINER ASSUMED PATIENT CARE
[2018-10-21 11:30] VITALS: BP 131/57
--- NOTE | 2018-10-21 14:50 | CON ---
[address] [address] CONSULTATION Name: GUERA MARKHAM Room: [address] IN M.R.#: [id number] Admission: 10/19/18 Attend Phys: Shanda Lazo Discharge: Date of : 41 Report #: [id number] THIS REPORT FOR: //name// CC: ELLIS physician/PCP Gerard Mclean DATE OF SERVICE: 10/20/2018 HISTORY OF PRESENT ILLNESS: The patient is a 73-year-old white female, who I was asked to see in the hospital today because she had lower extremity edema. The patient has an extensive past medical history. She previously lived in [place]. She had quadruple coronary artery bypass surgery in 1991, in [place]. In 2013, she had a coronary artery stent placed. She has also had a stent in her lower extremity. The patient moved from [place] to [place] this summer to live close to family. She actually left [place] with a Cuevas catheter in place. She has a history of atrial fibrillation and has been chronically anticoagulated. She apparently never required cardioversion. Echocardiogram in August showed an ejection fraction of 35-40% with apical akinesia, left atrial enlargement, severe tricuspid insufficiency. She actually just saw my nurse practitioner 3 weeks ago. Recently, she has had increasing swelling of her legs. She was brought from [facility] to [place] yesterday and was admitted. She is noted to have worsening renal function. I was asked to see her for further evaluation and treatment. PAST MEDICAL HISTORY: Otherwise significant for hypertension, diabetes and hyperlipidemia. MEDICATIONS: Consists of Eliquis, aspirin, Lipitor, Neurontin, insulin, metoprolol, Flomax and Demadex. ALLERGIES: SHE HAS ALLERGY TO PROMETHAZINE. FAMILY HISTORY: Mother and father had heart disease. SOCIAL HISTORY: She is . She quit smoking years ago. No alcohol abuse. REVIEW OF SYSTEMS: She is morbidly obese, standing 5 feet 3 inches and weighing 240 pounds. She has no history of stroke. She has had GERD. No liver disease. She has chronic kidney disease. No cancer. No psychiatric illness. No chronic skin condition. PHYSICAL EXAMINATION: GENERAL: Elderly female lying in bed. She appeared in no distress. VITAL SIGNS: She had a blood pressure of 110/60, pulse 60. She is afebrile. HEENT: She was anicteric. Conjunctivae pink. Mucous members moist. NECK: Veins difficult to assess due [place] [address] CONSULTATION Name: GUERA MARKHAM Room: [address]#: [id number] Admission: 10/19/18 Attend Phys: Shanda Lazo Discharge: Date of : 41 Report #: [id number] CHEST: Revealed decreased breath sounds at bases. CARDIOVASCULAR: Regular rate and rhythm. ABDOMEN: She had a very protuberant abdominal apron. It was soft. EXTREMITIES: Had pitting edema. Dorsalis pedis pulse cannot be palpated. SKIN: Cool and dry. RADIOLOGICAL DATA: Her ECG when she was admitted showed atrial fibrillation, controlled ventricular response rate, poor R-wave progression. Her workup in the Emergency Room yesterday, she had a portable chest x-ray that showed cardiomegaly, mild pulmonary vascular congestion. Venous duplex scan last month showed no DVT. LABORATORY DATA: Her lab work yesterday, sodium 134, potassium 4.4, BUN 45, creatinine is now 3.0, it was 2.8 in August. Albumin is 2.9. BNP ____. TSH last month was 1.7. White blood cell count 7.8 and hemoglobin 9.4. IMPRESSION AND RECOMMENDATIONS: 1. Acute on chronic systolic heart failure. The patient appears to be fluid overloaded. Because of her kidney disease, she may require ultrafiltration. The patient has been on a beta-[place]. She is not on ALINA inhibitor nor ARB because of chronic kidney disease. I will consider adding hydralazine and nitrates. 2. Atrial fibrillation. The patient is anticoagulated. Rate controlled with beta-[place]. 3. Diabetes. 4. Hyperlipidemia. The patient is on a statin drug. 5. Acute on chronic renal failure. Consider Nephrology consultation. 6. Obesity. 7. Anemia. No history of bleeding. <ELECTRONICALLY SIGNED> By: Barrett Warner MD, [facility] 10/21/18 1450 1000 [id number] Warner MD, FAC /nt
[2018-10-21 16:00] VITALS: BP 105/50
--- NOTE | 2018-10-21 16:13 | NUR ---
WOUND CARE NOTE: REASSESSMENT FOR TUBIGRIPS PATIENT SUCCESSFULLY TOLERATED THE SINGLE LAYER TUBIGRIP TO THE RIGHT LEG. APPLIED SIZE F TUBIGRIP TO RIGHT LEG. PATIENT NOW HAS SINGLE LAYER TUBIGRIP TO BILATERAL LEGS. ELEVATED PATIENT'S HEELS OFF BED WITH 2 PILLOWS. PATIENT'S UNDERSTANDS THE CONCEPT OF THE COMPRESSION FOR HER LEGS, CORRECTLY VERBALLY EDUCATED ANOTHER FAMILY MEMBER IN ROOM. RECOMEND WAFFLE CUSHION WHEN IN CHAIR ELEVATE LEGS WHEN IN CHAIR TURN Q2 HOURS
[2018-10-21 19:55] VITALS: BP 96/47
[2018-10-22] VITALS (7 sets, daily range): BP systolic 103–119; BP diastolic 40–61
--- NOTE | 2018-10-22 04:00 | NUR ---
ASSUMED CARE OF PT AT 1900. PT IS ALERT AND ORIENTED. VSS. PERRLA. NO COMPLAINTS OF PAIN. UNSTEADY GAIT. PT IS A 2 ASSIST. PT IS IN SINUS RYTHM ON THE TELEMETRY. PT IS RESTING COMFORTABLY IN BED. RESPIRATIONS ARE EVEN AND NONLABORED. WILL CONTINUE TO MONITOR PT.
[2018-10-22 09:13] LABS: HEMOGLOBIN 8.8 gm/dL (12.0-15.0); MCH 27.2 pg (26.0-34.0); MCHC 30.3 g/dL (28.0-37.0); MCV 89.6 fL (80.0-100.0); RBC 3.23 mil/uL (4.20-5.00); RDW-CV 18.4 % (10.5-14.5); WBC 6.4 thou/uL (4.0-11.0)
[2018-10-22 09:28] LABS: ALBUMIN 3.5 g/dL (3.4-5.0); CREATININE 3.3 mg/dL (0.6-1.3); PHOSPHORUS* 4.3 mg/dL (2.5-4.9)
[2018-10-22 11:53] LABS: ALBUMIN 3.5 g/dL (3.4-5.0); DIRECT BILIRUBIN 0.3 mg/dL (<0.1-0.3); TOTAL BILIRUBIN 0.7 mg/dL (<0.1-1.0); TOTAL PROTEIN 7.5 g/dL (6.4-8.2)
--- NOTE | 2018-10-22 14:12 | NUR ---
CHF DISCHARGE MEDICATION EDUCATION: PATIENT AND FAMILY WERE EDUCATED ON HOW TO TAKE, SIDE EFFECTS, AND HOW IT WORKS REGARDING THE MEDICATION METOPROLOL. A PATIENT EDUCATION HANDOUT WAS PROVIDED. ALL QUESTIONS AND CONCERNS WERE ADDRESSED. THANK YOU.
--- NOTE | 2018-10-22 14:35 | NUR ---
assumed pt care report received from nurse. pt is aox3 forgetful. on 3 l nasal canula. vss. complains of pain in right shoulder. pain level of 10. heating pad, lidocaine patch, tylenol given. pt states relief with the heating pad. lasix drip was stopped per dr order. q2 turn, accucheck ac/hs. see chart. oliguria noticed. devi catheter is patent. nephro ordered dialysis catheter which is currently being placed in pharmaceutical laboratory technician. pt kept npo after breakfast for the procedure.
--- NOTE | 2018-10-22 15:36 | NUR ---
right IJ in place. pt is getting dialysis done at this moment.
--- NOTE | 2018-10-22 18:09 | NUR ---
BP MONITORED DURING HD. SEE PAPER CHART FOR VITAL SIGN RECORD. DIALYSIS DONE BY 1805. PT IS STABLE IN BED.
--- NOTE | 2018-10-22 23:54 | NUR ---
INITAL ASSESMENT COMPLETED AT 1930. PT'S AT BEDSIDE ASSISTING WITH CARE. CALL LIGHT IN REACH, PT USING APPROPRIATELY.
--- NOTE | 2018-10-23 00:19 | NUR ---
PT'S ACCU CHECK AT HS 165. PT AND REFUSED LANTUS AND SLIDING SCALE INSULIN STATING PATIENT'D BLOOD SUGAR WOULD DROP TO DANGEROUS LEVEL IF TAKEN.
[2018-10-23 00:24] VITALS: BP 109/42
[2018-10-23 02:06] LABS: HEPATITIS B SURFACE AG Negative (Negative)
[2018-10-23 04:00] VITALS: BP 120/43
[2018-10-23 04:57] LABS: HEMATOCRIT 27.5 % (37.0-47.0); HEMOGLOBIN 8.3 gm/dL (12.0-15.0); MCH 27.1 pg (26.0-34.0); MCHC 30.3 g/dL (28.0-37.0); MCV 89.3 fL (80.0-100.0); MPV 8.7 fl. (7.2-11.1); RBC 3.08 mil/uL (4.20-5.00); RDW-CV 18.1 % (10.5-14.5); WBC 6.4 thou/uL (4.0-11.0)
[2018-10-23 05:19] LABS: ALBUMIN 3.1 g/dL (3.4-5.0); CALCIUM 8.9 mg/dL (8.5-10.1); CREATININE 3.2 mg/dL (0.6-1.3); PHOSPHORUS* 3.9 mg/dL (2.5-4.9); POTASSIUM 5.4 mmol/L (3.5-5.1)
--- NOTE | 2018-10-23 05:52 | NUR ---
ASSUMED CARE OF PATIENT AT ABOUT 0200 AGREE WITH SHIFT ASSESSMENT. PATIENT SLEPT MOST OF THE NIGHT. LEE REMAINS TO DEPENDENT DRAIN. WILL CONTINUE TO MONITOR.
--- NOTE | 2018-10-23 08:20 | NUR ---
ASSUMED CARE AFTER REPORT APPROX 0730. OX4, ABLE TO COMMUNICATE NEEDS TO STAFF. C/O PAIN IN R SHOULDER 06/09. PRN MED PER EMAR. SHEET MANUFACTURING SUPERVISOR IN PLACE, SR/AFIB, 70'S. O2 SAT >92% 3L O2. SPOUSE AT BS. ASSESSMENT DOCUMENTED. CALL LIGHT IN REACH. HOURLY ROUNDING FOR SAFETY AND PATIENT NEEDS.
[2018-10-23 08:35] VITALS: BP 120/48
--- NOTE | 2018-10-23 10:45 | NUR ---
PATIENT HOB ELEVATED TO DECREASE ORTHOPNEA. PATIENT STATES "WHY IS IT SO HARD FOR ME TO BREATHE?" EDUCATION GIVEN R/T CHF AND FLUID VOLUME OVERLOAD. PATIENT WITH REDDENED ORAL MUCOUS MEMBRANES AND DRY LIPS. ORAL CARE PROVIDED WITH MOUTH MOISTURIZER AND SWABS. MEDS GIVEN WITH APPLESAUCE. CALL LIGHT IN REACH. SPOUSE AT BS. DAUGHTER AND FAMILY IN ROOM VISITING.
[2018-10-23 12:08] VITALS: BP 117/44
--- NOTE | 2018-10-23 14:30 | NUR ---
PATIENT TO DIALYSIS VIA BED AND NURSING STAFF.
--- NOTE | 2018-10-23 16:00 | NUR ---
REC'D CALL FROM CASH APPLICATION CLERK FOR [facility]. ORDER PROCESSED. MED GIVEN PER APR. PATIENT PRESSURE IN 80'S/40'S PER CASH APPLICATION CLERKBLAST HOLE DRILLER. AT TIME OF PLASTERER TENDER, BP HAD INCREASED TO 90'S/50'S. PATIENT PLACED IN HIGH FOWLERS FOR PLASTERER TENDER, KIM WELL.
--- NOTE | 2018-10-23 17:45 | NUR ---
PATIENT TRANSPORTED BACK FROM DIALYSIS VIA BED AND NURSING STAFF. SPOUSE AT , ASSISTED PATIENT WITH MEAL. PATIENT WITH POOR APPETITE AT THIS TIME. PATIENT CONTINUES TO COOPERATE WITH FLUID RESTRICTION. CALL LIGHT
[2018-10-23 20:00] VITALS: BP 108/40
[2018-10-24] VITALS: BP 108/44
[2018-10-24 04:00] VITALS: BP 99/53
--- NOTE | 2018-10-24 04:52 | NUR ---
ASSUMED PT CARE AT APPROX 1930. PT IS LETHARGIC BUT AROUSABLE, ORIENTED TO SELF, PLACE AND SITUATION, FORGETFUL AT TIMES. VSS ON 2L OF . ASSESSMENT DONE AND CHARTED. TEMP DIALYSIS CATHETER INTACT. PT REFUSED SOME TURNS, EDUCATION GIVEN. REMINDED ON FLUID RESTRICTION. PT IS ABLE TO SLEEP MOST OF THE NIGHT. CALL LIGHT WITHIN REACH. HOURLY ROUNDING DONE FOR PT SAFETY.
[2018-10-24 05:34] LABS: HEMATOCRIT 27.5 % (37.0-47.0); HEMOGLOBIN 8.5 gm/dL (12.0-15.0); MCH 27.3 pg (26.0-34.0); MCHC 30.8 g/dL (28.0-37.0); MCV 88.7 fL (80.0-100.0); MPV 8.6 fl. (7.2-11.1); RBC 3.1 mil/uL (4.20-5.00); RDW-CV 18.3 % (10.5-14.5); WBC 7.2 thou/uL (4.0-11.0)
[2018-10-24 05:39] LABS: ALBUMIN 3.2 g/dL (3.4-5.0); CALCIUM 8.7 mg/dL (8.5-10.1); CREATININE 3.2 mg/dL (0.6-1.3); PHOSPHORUS* 4.1 mg/dL (2.5-4.9); POTASSIUM 5.2 mmol/L (3.5-5.1)
[2018-10-24 07:35] VITALS: BP 112/44
[2018-10-24 08:42] LABS: PCO2 33.1 mmHg (35.0-45.0); PO2 71.1 mmHg (75.0-100.0); pH 7.417 (7.340-7.450)
--- NOTE | 2018-10-24 09:30 | NUR ---
ASSUMED CARE AFTER REPORT APPROX 0730. [facility]X2, DYSPNEIC AT FIRST ENCOUNTER AT 0735. PATIENT STATES, "I FEEL LIKE I CAN'T BREATHE." ASSESSMENT COMPLETE. RLL DIMINISHED BREATH SOUNDS, RR 20. REPOSITIONED BED TO DECREASE ORTHOPNEA. DR. HICKS TO FOR ASSESSMENT. ORDERS RECEIVED FOR CXR, ABG AND EKG. OXYGEN PER NASAL CANNULA 2L 96% AT 0735. OXYGEN INCREASED TO 4L NC PER RT. PATIENT STATES, "I FEEL LIKE I CAN BREATHE AGAIN." CALL LIGHT IN REACH. HOURLY ROUNDING FOR SAFETY AND PATIENT NEEDS.
--- NOTE | 2018-10-24 11:28 | OP ---
[facility] [address] [place] [address] OPERATIVE REPORT Name: GUERA MARKHAM Room: [address] IN .R.#: [id number] Admission: 10/19/18 Attend Phys: Shanda Lazo Discharge: Date of : 41 Report #: [id number] THIS REPORT FOR: //name// CC: ELLIS physician/PCP Gerard Mclean DATE OF SERVICE: 10/22/2018 PREOPERATIVE DIAGNOSIS: Acute kidney injury, need for hemodialysis. POSTOPERATIVE DIAGNOSIS: Acute kidney injury, need for hemodialysis. OPERATION: 1. Ultrasound-guided access to the right internal jugular vein. 2. Temporary dialysis catheter placement. SURGEON: Denzel Meraz DO SPOOL SORTER: None. ANESTHESIA: Sedation with local. ESTIMATED BLOOD LOSS: 50 mL. FLUIDS: Less than 100 crystalloid. URINE OUTPUT: None. SPECIMENS: None. COMPLICATIONS: None. IMPLANTS: Mahurkar temporary dialysis catheter in the right IJ. FINDINGS: Right internal jugular vein was soft and compressible, suitable for access. The tip of the catheter was positioned in the right atrium SVC junction, aspirated and flushed well. CLINICAL HISTORY: The patient is a 73-year-old woman with renal failure who has a need to initiate dialysis. Recommendations were for a temporary dialysis catheter placed by Nephrology. DESCRIPTION OF PROCEDURE: After informed consent was obtained, the patient was taken to the interventional suite, placed on the OR bed in the supine position. She was administered sedation by the nurse at my discretion. The right neck was prepped and aped in usual sterile fashion. [place] [address] OPERATIVE REPORT Name: GUERA MARKHAM Room: [address] IN [facility]#: [id number] Admission: 10/19/18 Attend Phys: Shanda Lazo Discharge: Date of : 41 Report #: [id number] identifying correct patient and procedure. Next, the skin and subcutaneous tissues of the right neck were anesthetized with lidocaine anesthetic. Using ultrasound guidance, the right internal jugular vein was identified, was accessed with an 18 gauge needle. Images were preserved. Using Seldinger technique, a wire was passed under fluoroscopic guidance down the IVC. A small skin incision was made in the right neck. The tract was then dilated and then the temporary catheter was passed over the wire at the tip of the right atrium SVC junction. The catheter was then secured to the neck with 3-0 silk suture. The catheter aspirated and flushed well and was packed with heparin. The catheter may be used immediately for dialysis needs. All sponge, sharp and instrument counts reported correct x 2. She tolerated the procedure well and transferred to room in stable condition. <ELECTRONICALLY SIGNED> By: Denzel Meraz DO 10/24/18 1128 1442 1458Anaya Meraz DO /nt
[2018-10-24 12:00] VITALS: BP 131/53
[2018-10-24 16:00] VITALS: BP 117/46
[2018-10-24 19:50] VITALS: BP 121/49
[2018-10-25] VITALS: BP 126/36
[2018-10-25 04:00] VITALS: BP 128/52
[2018-10-25 05:00] LABS: ALBUMIN 3.2 g/dL (3.4-5.0); CALCIUM 8.8 mg/dL (8.5-10.1); CREATININE 3.9 mg/dL (0.6-1.3); POTASSIUM 5.7 mmol/L (3.5-5.1)
--- NOTE | 2018-10-25 07:07 | NUR ---
VSS. SEE MAR. SEE CHARTING. FALL PRECAUTIONS IN PLACE. HOURLY ROUNDING FOR SAFETY.
[2018-10-25 08:00] VITALS: BP 127/53
--- NOTE | 2018-10-25 09:03 | NUR ---
CM confirmed, Pt did present to the ER from [facility] skilled and the plan is for Pt to return to SNF at ca.
[2018-10-25 13:01] VITALS: BP 113/38
--- NOTE | 2018-10-25 14:47 | EKG ---
[place] [address] ELECTROCARDIOGRAM REPORT Name: GUERA MARKHAM Room: [address] ADM IN M.R.#: [id number] Admission: 10/19/18 Attend Phys: Shanda Lazo Discharge: Date of : 41 Report #: [id number] THIS REPORT FOR: //name// [facility] Test Date: 2018-10-24 Test Time: 08:34:57 Pat Name: GUERA MARKHAM Department: Room: [address] Gender: F Or Scrub Tech: : 1945 Requested By: Heladio Gordon Order Number: [id number] Neymar MD: Barrett Warner Measurements Intervals [place] Rate: 54 P: [place]: QRS: 109 QRSD: 125 T: -23 QT: 512 QTc: 486 Interpretive Statements Junctional rhythm Nonspecific intraventricular conduction delay Anteroseptal infarct, old Borderline T abnormalities, inferior leads Compared to ECG 10/19/2018 19:23:31 Junctional rhythm now present Prolonged QT interval no longer present T-wave abnormality still present Electronically Signed On 10-25-2018 14:47:13 CDT by Barrett Warner [email or web address] <ELECTRONICALLY SIGNED> By: Barrett Warner MD, [facility] 10/25/18 1447 0834 0834 Barrett Warner MD, [facility] /EPI
[2018-10-25 16:35] VITALS: BP 108/42
--- NOTE | 2018-10-25 18:14 | NUR ---
ASSUMED PT CARE REPORT RECEIVED FROM NURSE. PT IS AOX4 ON 3 L NC. WENT TO HEMODIALYSIS EARLY IN THE AM. 2 LITERS OF FLUID REMOVED. ACCUCHECH. MORNING MEDS GIVEN. Q2TURN. PT COMPLAINS OF PAIN AT THE TEMPORARY HEMODIALYSIS CATHETER SITE. SITE ASSESSED, SLIGHT REDNESS AROUND THE INSERTING SITE. BUT NO ACUTE PROCESS. PARTH GIVEN WITH MILK. WOUND CARE PERFORMED. ANURIA. FLOEY PATENT
[2018-10-25 20:45] VITALS: BP 115/44
[2018-10-26 00:26] VITALS: BP 129/54
[2018-10-26 04:30] VITALS: BP 136/49
[2018-10-26 05:19] LABS: HEMATOCRIT 27.8 % (37.0-47.0); HEMOGLOBIN 8.6 gm/dL (12.0-15.0); MCH 27.4 pg (26.0-34.0); MCV 88.3 fL (80.0-100.0); MPV 8.3 fl. (7.2-11.1); RBC 3.15 mil/uL (4.20-5.00); RDW-CV 18.9 % (10.5-14.5); WBC 7.9 thou/uL (4.0-11.0)
--- NOTE | 2018-10-26 05:33 | NUR ---
PT SLEPT MOST OF SHIFT. ASSESSMENT DOCUMENTED. MEDS GIVEN PER E-APR. IV'S PATENT. O2 WORN. PT REPOSITIONED THROUGH NIGHT. NO REPORTS OF PAIN OR NAUSEA. REMAINED AT BEDSIDE. TUBAGRIPS IN PLACE. WILL CONTINUE WITH PLAN OF CARE.
[2018-10-26 05:38] LABS: ALBUMIN 2.9 g/dL (3.4-5.0); CALCIUM 8.8 mg/dL (8.5-10.1); CREATININE 3.4 mg/dL (0.6-1.3); PHOSPHORUS* 3.1 mg/dL (2.5-4.9); POTASSIUM 4.4 mmol/L (3.5-5.1)
[2018-10-26 08:00] VITALS: BP 112/37
--- NOTE | 2018-10-26 11:36 | NUR ---
spoke with tiffanie about patient being on eliquis and will move the dialysis cath to thursday while adjusting blood thinner medication.
[2018-10-26 12:14] VITALS: BP 131/53
--- NOTE | 2018-10-26 14:11 | NUR ---
Pt has decided to pursue HD, CM to fax referral to [facility]. CM to discuss with Pt, Pt out of the room at this time. Will f/u later
[2018-10-26 16:57] VITALS: BP 97/44
--- NOTE | 2018-10-26 18:59 | NUR ---
ASSUMED PT CARE. PT AOX4 . BLOOD PRESSURE MEDICATION HELD FOR DIALYSIS. PT DENIES PAIN. ON 3 L NC. VSS. WENT TO DIALYSIS AT 1230 PM CAME BACK AT 1600. DANIELLA HELD FOR DIALYSIS CATHETER PLACEMENT ON THURSDAY. ACCUCHECK.
[2018-10-26 21:15] VITALS: BP 117/59
[2018-10-27] VITALS: BP 135/54
[2018-10-27 04:00] VITALS: BP 138/61
[2018-10-27 05:12] LABS: ALBUMIN 3.2 g/dL (3.4-5.0); CALCIUM 8.9 mg/dL (8.5-10.1); CREATININE 2.7 mg/dL (0.6-1.3); PHOSPHORUS* 2.9 mg/dL (2.5-4.9); POTASSIUM 4.7 mmol/L (3.5-5.1)
[2018-10-27 08:00] VITALS: BP 113/61
--- NOTE | 2018-10-27 08:16 | NUR ---
PT SLEPT MOST OF SHIFT. ASSESSMENT DOCUMENTED. MEDS GIVEN PER E-MAR. IV PATENTS. NO REPORTS OF PAIN OR NAUSEA. WILL CONTINUE WITH PLAN OF CARE.
--- NOTE | 2018-10-27 10:02 | CON ---
[address] [address] CONSULTATION Name: GUERA MARKHAM Room: [address] IN .R.#: [id number] Admission: 10/19/18 Attend Phys: Shanda Lazo Discharge: Date of : 41 Report #: [id number] THIS REPORT FOR: //name// CC: ELLIS physician/PCP Gerard Mclean DATE OF SERVICE: 10/20/2018 REQUESTING PHYSICIAN: Dominik Duenas M.D. REASON FOR CONSULTATION: Acute kidney injury. HISTORY OF PRESENT ILLNESS: The patient is a 73-year-old female very well known to us. She was here in the hospital a couple of months ago with acute kidney injury on top of the chronic kidney disease. She got better, was transferred to rehabilitation center, but there initially was getting better, but then she got worse and she got readmitted here with fluid overload. Her creatinine at discharge from this hospital was 1.7, now it has picked up to 3.0. PAST MEDICAL HISTORY: Significant for: 1. Chronic kidney disease stage 4. 2. Coronary artery disease. 3. Chronic obstructive pulmonary disease. 4. Diabetes mellitus type 2. 5. Anemia. 6. Overall deconditioning. 7. Mild to moderate congestive heart failure. FAMILY HISTORY: Noncontributory. SOCIAL HISTORY: No tobacco, no alcohol abuse. She has very supportive family. REVIEW OF SYSTEMS: Positive for shortness of breath, increased abdominal girth, increased lower extremity edema and overall profound weakness. MEDICATIONS: Reviewed. PHYSICAL EXAMINATION: GENERAL: She is awake, alert, oriented. VITAL SIGNS: Blood pressure is 109/43, heart rate 64, temperature 36.9, respiratory rate 21. HEENT: Pupils are round. NECK: With elevated JVD. LUNGS: Decreased breath [place] [address] CONSULTATION Name: GUERA MARKHAM Room: [address]#: [id number] Admission: 10/19/18 Attend Phys: Shanda Lazo Discharge: Date of : 41 Report #: [id number] CARDIOVASCULAR: Distant heart tones. ABDOMEN: Obese. Edema of abdominal wall is present. LOWER EXTREMITIES: With 3-4+ edema. LABORATORY DATA: Report revealed serum sodium of 135, potassium 4.3, chloride 101, carbon dioxide 23, BUN 47, creatinine 2.8, calcium 8.3, phosphorus 4.2 and hemoglobin 9.4. ASSESSMENT: 1. A 73-year-old female with acute kidney injury on top of the chronic kidney disease. She is volume overloaded. 2. Chronic kidney disease stage 4. 3. Coronary artery disease. 4. Deconditioning. 5. Diabetes mellitus type 2. 6. Chronic obstructive pulmonary disease. 7. Anemia. PLAN: She needs to be diuresed and placed on Lasix 40 mg IV every 8 hours. Follow daily weight and daily I's and O's. If her renal function deteriorates, admitting that she does not respond to the Lasix appropriately. We will have to discuss and make a decision about dialysis. The patient's family at this point not thinking about dialysis, but they may change their mind. <ELECTRONICALLY SIGNED> By: Joshua Davis MD 10/27/18 1002 1049 1553Alexchava Davis MD /[facility]
--- NOTE | 2018-10-27 11:59 | NUR ---
WOUND CARE NOTE: REASSESSMENT OF SACRAL PRESSURE ULCER. PATIENT CONTINUES WITH A STAGE 2 PRESSURE ULCER TO THE RIGHT SIDE OF HER SACRUM. AREA MEASURES APPROXIMATELY 0.5X0.5X0.1. PALE, PINK, MOIST WOUND BED. CLEANSED, THEN APPLIED BARRIER OINTMENT. ONE OF THE FRIABLE AREAS HAS NOW NOTED TO BE OPENED, STAGE 2, APPROXIMATELY 0.3X0.3X0.1. AFTER CLEANSING, APPLIED BARRIER OINTMENT. RECOMMEND WEDGES DURING TURNING LIMIT LAYERS OF LINEN UNDER PATIENT LIMIT HOB <30 DEGREES BARRIER OINTMENT TO SACRAL AREA, NO FOAM DRESSINGS ENCOURAGE GOOD NUTRTION/HYDRATION
[2018-10-27 12:44] VITALS: BP 99/45
[2018-10-27 17:15] VITALS: BP 125/54
[2018-10-27 21:00] VITALS: BP 116/50
[2018-10-28] VITALS: BP 128/54
[2018-10-28 04:00] VITALS: BP 109/59
--- NOTE | 2018-10-28 05:53 | NUR ---
PT SLEPT MOST OF SHIFT. ASSESSMENT DOCUMENTED. MEDS GIVEN PER E-APR. IV'S PATENT. PT REPOSITIONED THROUGH NIGHT. LEE IN PLACE DRAINING DEPENDANTLY. FALL PRECATIONS IN PLACE. WILL CONTINUE WITH PLAN OF CARE.
[2018-10-28 08:00] VITALS: BP 110/50
--- NOTE | 2018-10-28 12:05 | NUR ---
JUSTIN received call from [facility] providing message of acceptance for dialysis and can start pt on Thursday chair time 2:00 pm (pt to arrive at 1:30 pm on first day). JUSTIN called Deisi in admissions at [facility] to provide referral updates and faxed referral info for possible dc Thursday. SW to continue to follow to assist with safe dc planning.
[2018-10-28 16:00] VITALS: BP 115/49
[2018-10-28 19:15] VITALS: BP 122/57
--- NOTE | 2018-10-28 23:37 | NUR ---
ASSUMED CARE OF PT AT 1900. PT IS ALERT AND ORIENTED. VSS. PERRLA. NO COMPLAINTS OF PAIN. PT HAS A LEE IN PLACE. PT IS IN SINUS RYTHM ON THE TELEMETRY. PT IS RESTING COMFORTABLY IN BED. RESPIRATIONS ARE EVEN AND NONLABORED. WILL CONTINUE TO MONITOR PT.
[2018-10-29] VITALS (8 sets, daily range): BP systolic 103–133; BP diastolic 47–78
[2018-10-29 05:10] LABS: CALCIUM 8.9 mg/dL (8.5-10.1); CREATININE 2.5 mg/dL (0.6-1.3); POTASSIUM 4.4 mmol/L (3.5-5.1)
[2018-10-29 05:11] LABS: ABSOLUTE LYMPHOCYTES 1.4 thou/uL (0.8-5.3); ABSOLUTE MONOCYTES 0.7 thou/uL (0.0-1.2); ABSOLUTE NEUTROPHILS 6.6 thou/uL (1.6-8.1); BASOPHILS 0.4 %; EOSINOPHILS 0.2 %; HEMATOCRIT 30.1 % (37.0-47.0); HEMOGLOBIN 9.3 gm/dL (12.0-15.0); MCH 27.3 pg (26.0-34.0); MCHC 31.1 g/dL (28.0-37.0); MCV 87.8 fL (80.0-100.0); MONOCYTES 8.3 %; MPV 8.9 fl. (7.2-11.1); NUCLEATED RBCS 0 /100WBC; PLATELET COUNT* 205 thou/uL (150-400); POLYS 75.1 %; RBC 3.43 mil/uL (4.20-5.00); RDW-CV 19.5 % (10.5-14.5); WBC 8.7 thou/uL (4.0-11.0)
[2018-10-29 05:21] LABS: ALBUMIN 3.2 g/dL (3.4-5.0); CALCIUM 9.2 mg/dL (8.5-10.1); CREATININE 2.5 mg/dL (0.6-1.3); PHOSPHORUS* 2.6 mg/dL (2.5-4.9); POTASSIUM 4.6 mmol/L (3.5-5.1)
--- NOTE | 2018-10-29 08:30 | NUR ---
Pt down to IR for placement of tunneled dialysis catheter.
--- NOTE | 2018-10-29 16:41 | NUR ---
Pt to dc to [facility] tomorrow, Thursday, 10/30. SW to fax final orders and [facility] to provide ride. Timing depends on whether or not pt needs dialysis tomorrow prior to dc, unknown at this time to SW. JUSTIN faxed [facility] report on tunnel dialysis catheter. [facility] to expect pt at 2:30 on Thursday for 3:00 chair time (changed from previous message from [facility]). Continued chair time will be MWF 3:00. JUSTIN provided copy of acceptance/schedule letter to pt/. [facility] ph [phone] fax [phone] [facility] ph [phone] fax [phone]
[2018-10-30] VITALS: BP 136/91
[2018-10-30 04:00] VITALS: BP 132/53
--- NOTE | 2018-10-30 04:03 | NUR ---
ASSUMED CARE OF PT AT 1900. PT IS ALERT AND ORIENTED. VSS. PERFENG. PT HAS URINARY CATHETER IN PLACE. PT IS IN SINUS RYTHM ON THE TELEMETRY. PT IS RESTING COMFORTABLY INBED. RESPIRATIONS ARE EVEN AND NONLABORED. WILL CONTINUE TO MONITOR PT.
[2018-10-30 08:00] VITALS: BP 128/54
[2018-10-30 11:37] VITALS: BP 110/47
[2018-10-30] MEDS ORDERED: IRON325 PO (13:19)
[2018-10-30] MEDS ORDERED: METOPROLOL SUCC25 M1 PO ×2 (13:19→13:29)
[2018-10-30] MEDS ORDERED: IMDUR 30 MG TAB30 M1 PO (13:20)
[2018-10-30] MEDS ORDERED: TRAMADOL 50 MG50 MG PO (13:20)
[2018-10-30] MEDS ORDERED: HYDRALAZINE 2525 MG PO (13:20)
[2018-10-30] MEDS ORDERED: LANTUS100 UNIT/M SUBQ (13:21)
[2018-10-30] MEDS ORDERED: HUMALOG100 UNIT/1 SUBQ (13:21)
[2018-10-30] MEDS ORDERED: NEPHRO-VITE TA0.8 MG PO (13:22)
--- NOTE | 2018-10-30 14:54 | NUR ---
Received order from physician to arrange d/c to [facility]. Called social media coordinator and faxed orders. Chart copied. aware of d/c. [facility] will provide w/c van transport at [phone] and bill the facility. No other needs identified.
--- NOTE | 2018-10-30 15:21 | NUR ---
PT IS DISCHARGING TO [facility] IN THE NEXT 30 MINUTES, PT IS REFUSING EVAL AT THIS TIME
== END 2018-10-30 16:00 | DRG 441 ==
LOC: M.ERS 18:34 → M.TBA-ER 20:30 → M.2W 20:30
PROVIDERS: Family Medicine; Internal Medicine; Internal Medicine Nephrology; Nurse Practitioner Family; ADMIT Internal Medicine
PROC: B5181ZA Fluoroscopy of Superior Vena Cava using Low Osmolar Contrast, Guidance (ICD-10-PCS; principal; 2018-10-22)
PROC: 02HV33Z Insertion of Infusion Device into Superior Vena Cava, Percutaneous Approach (ICD-10-PCS; principal; 2018-10-22)
PROC: B548ZZA Ultrasonography of Superior Vena Cava, Guidance (ICD-10-PCS; principal; 2018-10-22)
PROC: B548ZZA Ultrasonography of Superior Vena Cava, Guidance (ICD-10-PCS; 2018-10-29)
PROC: 0JH63XZ Insertion of Tunneled Vascular Access Device into Chest Subcutaneous Tissue and Fascia, Percutaneous Approach (ICD-10-PCS; 2018-10-29)
PROC: 02HV33Z Insertion of Infusion Device into Superior Vena Cava, Percutaneous Approach (ICD-10-PCS; 2018-10-29)
PROC: B5181ZA Fluoroscopy of Superior Vena Cava using Low Osmolar Contrast, Guidance (ICD-10-PCS; 2018-10-29)
DX: K76.7 Hepatorenal syndrome (principal); I50.43 Acute on chronic combined systolic (congestive) and diastolic (congestive) heart failure; N17.0 Acute kidney failure with tubular necrosis; J96.21 Acute and chronic respiratory failure with hypoxia; N18.6 End stage renal disease; I13.2 Hypertensive heart and chronic kidney disease with heart failure and with stage 5 chronic kidney disease, or end stage renal disease; E44.0 Moderate protein-calorie malnutrition; J44.1 Chronic obstructive pulmonary disease with (acute) exacerbation; I42.9 Cardiomyopathy, unspecified; I25.10 Atherosclerotic heart disease of native coronary artery without angina pectoris; E78.5 Hyperlipidemia, unspecified; I48.91 Unspecified atrial fibrillation; E66.9 Obesity, unspecified; E10.40 Type 1 diabetes mellitus with diabetic neuropathy, unspecified; D63.8 Anemia in other chronic diseases classified elsewhere; E10.22 Type 1 diabetes mellitus with diabetic chronic kidney disease; I35.0 Nonrheumatic aortic (valve) stenosis; I27.20 Pulmonary hypertension, unspecified; E10.51 Type 1 diabetes mellitus with diabetic peripheral angiopathy without gangrene; L89.159 Pressure ulcer of sacral region, unspecified stage; E87.70 Fluid overload, unspecified; I07.1 Rheumatic tricuspid insufficiency; K76.1 Chronic passive congestion of liver; E10.65 Type 1 diabetes mellitus with hyperglycemia; T38.0X5A Adverse effect of glucocorticoids and synthetic analogues, initial encounter; Z82.49 Family history of ischemic heart disease and other diseases of the circulatory system; Z88.8 Allergy status to other drugs, medicaments and biological substances; Z68.38 Body mass index [BMI] 38.0-38.9, adult; Z95.5 Presence of coronary angioplasty implant and graft; Z82.41 Family history of sudden cardiac death; Z87.891 Personal history of nicotine dependence; Z79.01 Long term (current) use of anticoagulants; Z99.2 Dependence on renal dialysis; Y92.89 Other specified places as the place of occurrence of the external cause